=== PATIENT | male | born 1945 | race Caucasian/White ===

== ENCOUNTER 2024-08-31 16:52 | Inpatient (IN) | payer OTHER, SELFPAY ==
[2024-08-31] VITALS (13 sets, daily range): BP systolic 149–183; BP diastolic 83–108; PULSE 71–100; RESP 16–37; TEMP 36.8–37.1; O2SAT 87–100; BMI 25.4; BMI 23.1
--- NOTE | 2024-08-31 16:59 | EKG12_ITS ---
Test Reason : Blood Pressure : */* mmHG Vent. Rate : 82 BPM Atrial Rate : 82 BPM P-R Int : 174 ms QRS Dur : 88 ms QT Int : 388 ms P-R-T Axes : 72 -51 61 degrees QTcB Int : 453 ms Normal sinus rhythm Left axis deviation Pulmonary disease pattern Nonspecific T wave abnormality Abnormal ECG Confirmed by ZORAN PAIGE, MARCIE ([id number]), movie editor LUIS SALEH ([id number]) on 09/01/2024 1:34:03 PM Referred By: Paulie Rojas Confirmed By: MARCIE MEEHAN MD
--- NOTE | 2024-08-31 16:59 | EKG12_ITS ---
Test Reason : Blood Pressure : */* mmHG Vent. Rate : 82 BPM Atrial Rate : 82 BPM P-R Int : 174 ms QRS Dur : 88 ms QT Int : 388 ms P-R-T Axes : 72 -51 61 degrees QTcB Int : 453 ms Normal sinus rhythm Left axis deviation Pulmonary disease pattern Nonspecific T wave abnormality Abnormal ECG Confirmed by ZORAN PAIGE, MARCIE ([id number]), offline editor LUIS SALEH ([id number]) on 09/01/2024 1:34:03 PM Referred By: Paulie Rojas Confirmed By: MARCIE MEEHAN MD
[2024-08-31 17:20] LABS: Hematocrit 44.9 % (40-54); Hemoglobin 14.7 g/dL (13.0-16.5); Immature Granulocytes Count 0.240 X10^3/uL (0.0-0.0); Mean Corp Hgb Conc 32.7 g/dL (32-36); Mean Corpuscular Volume 92.0 fL (80-94); Mean Platelet Vol. 8.8 fl (6.2-12.0); NRBC Flagged by Analyzer 0 % (0-5); Platelet Count 219 K/mm3 (150-450); RBC Distribution Width CV 13.1 % (11.6-14.6); RBC Distribution Width SD 44.0 fl (35.1-43.9); Red Blood Count 4.88 M/mm3 (4.6-6.2); White Blood Count 6.3 K/mm3 (4.4-11.0)
--- NOTE | 2024-08-31 18:00 | RAD_ITS ---
EXAM: XR Chest, 1 View CLINICAL INDICATION: CHEST PAIN TECHNIQUE: Frontal view of the chest. COMPARISON: No relevant prior studies available. FINDINGS: LUNGS AND PLEURAL SPACES: Right basilar atelectasis or pneumonia. Right pleural effusion. HEART: Cardiomegaly with mild congestion. MEDIASTINUM: Unremarkable. Normal mediastinal contour. BONES/JOINTS: Unremarkable. No acute fracture. RAD/Chest 1 View (Portable) IMPRESSION: 1. Right basilar atelectasis or pneumonia. 2. Cardiomegaly with mild congestion. 3. Right pleural effusion. Reading Location: [id number]
--- NOTE | 2024-08-31 18:00 | RAD_ITS ---
EXAM: XR Chest, 1 View CLINICAL INDICATION: CHEST PAIN TECHNIQUE: Frontal view of the chest. COMPARISON: No relevant prior studies available. FINDINGS: LUNGS AND PLEURAL SPACES: Right basilar atelectasis or pneumonia. Right pleural effusion. HEART: Cardiomegaly with mild congestion. MEDIASTINUM: Unremarkable. Normal mediastinal contour. BONES/JOINTS: Unremarkable. No acute fracture. RAD/Chest 1 View (Portable) IMPRESSION: 1. Right basilar atelectasis or pneumonia. 2. Cardiomegaly with mild congestion. 3. Right pleural effusion. Reading Location: [id number]
--- NOTE | 2024-08-31 18:08 | EDS_ITS ---
HPI History of Present Illness Chief Complaint: Cough Informant: patient Onset/Context/Timing Onset: Today Context: Sudden Onset Timing: Continuous Quality: Pressure Location: Chest, upper back, bilateral arms Worsened by: Nothing Relieved by: Rest Narrative Narrative: Patient presents with cough, chest pain, and bilateral arm pain that began today. Patient states it began rather suddenly. Patient describes it as a pressure. Patient states that it is across his chest, upper back, and bilateral arms. Patient states it is constant. Patient states nothing makes it worse and nothing makes it better. Patient states he is feeling better on arrival to the emergency department. Patient admits to a mild cough. Patient denies any fevers or chills. Patient denies any nausea or vomiting. [facility] Medical History CVA (cerebral vascular accident) COPD (chronic obstructive pulmonary disease) HTN (hypertension) Home Medications ?Medication ?Instructions ?Recorded ?Last Taken ?Type amlodipine 10 mg tablet 10 mg PO DAILY 08/31/24 Unkn own History aspirin 81 mg tablet 81 mg PO DAILY 08/31/24 Unkn own History cholecalciferol (vitamin D3) 50 50 mcg PO DAILY Unknown History mcg (2,000 unit) capsule empagliflozin 25 mg tablet 25 mg PO DAILY 08/31/24 Unk nown History losartan 100 mg tablet 100 mg PO DAILY 08/31/24 Unk nown History metformin 500 mg tablet 500 mg PO DAILY 08/31/24 Unk nown History metoprolol tartrate PO DAILY 08/31/24 Unknown Hi story multivitamin 1 tab PO DAILY 08/31/24 Unkn own History simvastatin 40 mg tablet 40 mg PO QHS 08/31/24 Unknow n History Allergy/AdvReac Type Severity Reaction Status Date / Time No Known Allergies Allergy Verified 08/31/24 16:53 Surgical History S/P CABG x 4 Social History Smoking Status: Current every day smoker tobacco type: cigars ROS ROS ED Constitutional Constitutional ED: Denies chills or fever(s) Eyes Eyes: Denies blurry vision or change in vision ENT ENT ED: Denies rhinorrhea or sore throat Cardiovascular Cardiovascular: Reports chest pain; Denies palpitations Respiratory/Chest Respiratory/Chest: Reports cough; Denies dyspnea Gastrointestinal Gastrointestinal: Denies nausea or vomiting Genitourinary Genitourinary ED: Denies dysuria or hematuria Musculoskeletal Musculoskeletal: Reports back pain; Denies neck pain Integumentary Denies abscess or rash Neurologic Neurologic: Denies headache(s) or weakness Allergic/Immunologic Allergic/Immunologic ED: Denies mouth swelling or urticaria EXAM Physical Exam Const Vital Signs: 08/31/24 16:53 08/31/24 16:59 08/31/24 17:05 Temperature 98.4 F Temperature Source Temporal Pulse Rate 100 Respiratory Rate 16 Respiratory Effort Respiratory Depth Respiratory Pattern Blood Pressure 156/108 H Blood Pressure Mean 124 Pulse Ox 90 87 96 Oxygen Delivery Method Room Air Room Air Nasal Cannula Oxygen Flow Rate (L/min) 2 08/31/24 17:52 08/31/24 17:54 08/31/24 18:26 Temperature Temperature Source Pulse Rate 84 74 Respiratory Rate 25 H 18 Respiratory Effort Normal Non-Labored Respiratory Depth Normal Respiratory Pattern Normal Blood Pressure 181/91 H 157/87 H Blood Pressure Mean 121 110 Pulse Ox 100 98 Oxygen Delivery Method Nasal Cannula Nasal Cannula Nasal Cannula Oxygen Flow Rate (L/min) 2 2 2 08/31/24 19:06 08/31/24 20:00 08/31/24 21:00 Temperature Temperature Source Pulse Rate 88 77 71 Respiratory Rate 37 H 18 18 Respiratory Effort Respiratory Depth Respiratory Pattern Blood Pressure 183/98 H 157/89 H 152/97 H Blood Pressure Mean 126 111 115 Pulse Ox 91 94 94 Oxygen Delivery Method Room Air Room Air Room Air Oxygen Flow Rate (L/min) 08/31/24 22:00 08/31/24 22:00 Temperature 98.7 F Temperature Source Pulse Rate 74 74 Respiratory Rate 18 18 Respiratory Effort Respiratory Depth Respiratory Pattern Blood Pressure 152/83 H 152/83 H Blood Pressure Mean 106 106 Pulse Ox 96 96 Oxygen Delivery Method Room Air Oxygen Flow Rate (L/min) Positive well nourished and well developed Constitutional Narrative: BMI is 25.4. General Appearance ED: well developed and NAD Neck supple and no JVD Chest Wall palpation of chest normal Resp normal respiratory effort and clear to auscultation bilaterally Cardio regular rate and regular rhythm GI non-tender and non-distended Palpation: soft Back/Spine Thoracic Spine / Upper Back: Negative for thoracic spinal tenderness or paraspinal muscle tenderness Neuro oriented x3, CN's II-XII intact bilaterally and no sensory deficits noted Sensorium / Orientation: alert Motor Exam: strength 5/5 throughout Psych mental status grossly normal MDM MDM MDM Narrative Medical decision making narrative: Differential diagnosis includes cardiac dysrhythmia, cardiac ischemia, pneumonia, bronchitis, electrolyte abnormality, congestive heart failure, pleural effusion, pulmonary embolism, and gastroesophageal reflux disease. EKG will be obtained to assess for cardiac dysrhythmia and cardiac ischemia. Chest x-ray will be obtained to assess for pneumonia, bronchitis, history of heart failure, and pleural effusion. CBC will be obtained to assess for leukocytosis and anemia. Basic metabolic profile will be obtained to assess for electrolyte abnormality and renal function. High-sensitivity troponin will be obtained to assess for cardiac ischemia. 2-hour repeat high-sensitivity troponin will be obtained to assess for ongoing cardiac ischemia. D-dimer will be obtained to assess for pulmonary embolism. History & Record Review Additional record(s) reviewed:: No prior records Lab Data Attestation: I reviewed the patient's lab results. Lab results narrative: CBC was reviewed and was within normal limits. Basic metabolic profile was reviewed. Glucose was mildly elevated at 190. The remainder was within normal limits. Initial high-sensitivity troponin was reviewed and was normal at 18. D-dimer was reviewed and was elevated 2.0. 2-hour repeat high-sensitivity troponin was reviewed and was normal at 20. Labs: Laboratory Results - last 24 hr 08/31/24 08/31/24 08/31/24 17:05 18:48 19:22 WBC 6.3 RBC 4.88 Hgb 14.7 Hct 44.9 MCV 92.0 MCH 30.1 MCHC 32.7 RDW Std Deviation 44.0 H RDW Coeff of Monika 13.1 Plt Count 219 MPV 8.8 Immature Gran % (Auto) 3.800 H Neut % (Auto) 70.2 H Lymph % (Auto) 17.1 L Pima % (Auto) 8.1 Eos % (Auto) 0.5 Baso % (Auto) 0.3 Absolute Neuts (auto) 4.4 Absolute Lymphs (auto) 1.07 Nucleated RBC % 0 D-Dimer Quant (PE/DVT) 2.00 H* Sodium 137 Potassium 3.6 Chloride 94 L Carbon Dioxide 32.8 H Anion Gap 11 BUN 13 Creatinine 0.82 Estim Creat Clear Calc 77.80 Est GFR (MDRD) Non-Af 89 BUN/Creatinine Ratio 16.1 Glucose 190 H Calcium 9.3 Magnesium 1.9 Troponin T High Sens 18 Troponin T Hi Sens 2 Hr 20 NT pro BNP II 272 Radiography Chest X-Ray - ED: 1 View, Read by ED Physician, Read by Radiologist and Right Effusion Diagnostic Testing: Clinical Impression(s) from Imaging Studies Chest X-Ray 08/31/24 18:00 IMPRESSION: 1. Right basilar atelectasis or pneumonia. 2. Cardiomegaly with mild congestion. 3. Right pleural effusion. Reading Location: [facility] Chest CTA 08/31/24 19:21 IMPRESSION: 1. No pulmonary embolism to the proximal segmental level. 2. Moderate right and small left pleural effusions. There is peripheral enhancement, right more than left, as may be seen with empyema. 3. 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 4. Bibasilar consolidation, which may represent atelectasis, edema, and/or infection. 5. Reflux of contrast into the IVC, suggestive of elevated right heart pressures. 6. Solid nodule in the right upper lobe measuring 4 mm, consider CT chest in 12 months if patient is at high risk for malignancy per Fleischner society guidelines. Reading Location: [facility] Portable 1 view chest x-ray was obtained. On my independent interpretation, lung zaragoza showed a right pleural effusion. There is right basilar atelectasis. There is cardiomegaly. Bony thorax is normal. There is no acute process noted. Radiologist also interpreted the x-ray and agrees. Because of the elevated D-dimer, CTA of the chest was obtained. There is no pulmonary embolism. There are moderate right and small left pleural effusions. There is a solid nodule in the right upper lobe measuring 4 mm. This was i nterpreted by the radiologist as also independently reviewed by myself. EKG Initial EKG: Attestation: I personally reviewed and interpreted this EKG as follows: Interpretation: Sinus Rhythm (82) and Non-Specific ST Changes Comments: EKG was obtained. On my independent interpretation, it showed a normal sinus rhythm with a rate of 82. OR interval, QRS interval, and QTc intervals were all normal. There is left axis deviation at -51. There are nonspecific ST-T wave changes. Prior EKG tracings: not available for review Prior: No Prior Treatment and Re-Evaluation :: Patient was given aspirin here. Patient was advised of this findings. Patient was ambulated on room air. Patient's oxygen level dropped to 77% while ambulating. Because of this, recommended admission to the hospital for further evaluation of the pleural effusion. Case was discussed with the hospitalist. He recommended obtaining a BNP. This was ordered. He will admit the patient to his service. Patient understood and was agreeable with this plan. All questions were answered. Discharge Plan Dx/Rx/DC Orders Clinical Impression: Pleural effusion on right, Hypoxia, Elevated blood pressure reading Disposition Disposition: Acute Care Hospital [facility] Discharge Date/Time: 08/31/24 23:26
[2024-08-31 18:27] LABS: Anion Gap 11 (5-15); BUN 13 mg/dL (4-19); BUN/Creat Ratio 16.1 RATIO (10-20); Calcium,Total 9.3 mg/dL (7.6-11.0); Carbon Dioxide 32.8 mmol/L (21.0-32.0); Chloride 94 mmol/L (98-108); Estimated Creatinine Clearance 77.80 ml/min (50-250); Glucose 190 mg/dL (70-99); Potassium 3.6 mmol/L (3.3-5.1)
[2024-08-31 18:28] LABS: Troponin T High Sensitivity 18 ng/L (<=22)
[2024-08-31 19:19] LABS: D-Dimer Quantitative (DVT/PE) 2.00 FEU/ug/m (0.27-0.49)
--- NOTE | 2024-08-31 19:21 | CT_ITS ---
PROCEDURE: CTA CHEST W/WO CONTRAST 08/31/2024 REASON FOR EXAM: ELEVATED D-DIMER TECHNIQUE: CTA CHEST W/WO CONTRAST Multiplanar Sagittal and Coronal images were obtained. 3D post processing was performed CONTRAST: Isovue 370 VOLUME: 100 mL mL One or more dose reduction techniques were used (e.g., Automated exposure control, adjustment of the mA and/or kV according to patient size, use of iterative reconstruction technique). RADIATION DOSE SUMMARY: CTDlvol: 16.6 mGy DLP: 408 mGycm COMPARISON: Same day chest radiograph FINDINGS: Lymph nodes: No significant lymphadenopathy. Heart: Sequelae of CABG. Mild cardiomegaly. Enln-cx-cannymev coronary calcification bilaterally. Thoracic Aorta: No thoracic aortic aneurysm or dissection. Pulmonary Vessels: No evidence of acute pulmonary emboli through the proximal segmental branches. Lungs and Airways: Trace nonobstructing debris in the trachea. There is consolidation in the lower lobes, [id number]-left. There is a triangular perifissural nodule in the right upper lobe measuring 4 mm (series 2 image 142). Pleura: Moderate right and small left pleural effusions, with mild peripheral enhancement bilaterally, right more than left. Bilateral calcified pleural plaques. Upper Abdomen: Splenic calcifications suggestive of prior granulomatous disease. There is reflux of contrast into the IVC. Thickening of the adrenal glands without discrete nodularity. Bones: Degenerative changes of the thoracic spine. CT/CTA Chest W/WO Contrast IMPRESSION: 1. No pulmonary embolism to the proximal segmental level. 2. Moderate right and small left pleural effusions. There is peripheral enhan cement, right more than left, as may be seen with empyema. 3. 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 4. Bibasilar consolidation, which may represent atelectasis, edema, and/or inf ection. 5. Reflux of contrast into the IVC, suggestive of elevated right heart pressur es. 6. Solid nodule in the right upper lobe measuring 4 mm, consider CT chest in 1 2 months if patient is at high risk for malignancy per Fleischner society guidelines. Reading Location: [id number]
--- NOTE | 2024-08-31 19:21 | CT_ITS ---
PROCEDURE: CTA CHEST W/WO CONTRAST 08/31/2024 REASON FOR EXAM: ELEVATED D-DIMER TECHNIQUE: CTA CHEST W/WO CONTRAST Multiplanar Sagittal and Coronal images were obtained. 3D post processing was performed CONTRAST: Isovue 370 VOLUME: 100 mL mL One or more dose reduction techniques were used (e.g., Automated exposure control, adjustment of the mA and/or kV according to patient size, use of iterative reconstruction technique). RADIATION DOSE SUMMARY: CTDlvol: 16.6 mGy DLP: 408 mGycm COMPARISON: Same day chest radiograph FINDINGS: Lymph nodes: No significant lymphadenopathy. Heart: Sequelae of CABG. Mild cardiomegaly. Jpsk-[id number] coronary calcification bilaterally. Thoracic Aorta: No thoracic aortic aneurysm or dissection. Pulmonary Vessels: No evidence of acute pulmonary emboli through the proximal segmental branches. Lungs and Airways: Trace nonobstructing debris in the trachea. There is consolidation in the lower lobes, [id number]-[id number]-oayw-left. There is a triangular perifissural nodule in the right upper lobe measuring 4 mm (series 2 image 142). Pleura: Moderate right and small left pleural effusions, with mild peripheral enhancement bilaterally, right more than left. Bilateral calcified pleural plaques. Upper Abdomen: Splenic calcifications suggestive of prior granulomatous disease. There is reflux of contrast into the IVC. Thickening of the adrenal glands without discrete nodularity. Bones: Degenerative changes of the thoracic spine. CT/CTA Chest W/WO Contrast IMPRESSION: 1. No pulmonary embolism to the proximal segmental level. 2. Moderate right and small left pleural effusions. There is peripheral enhan cement, right more than left, as may be seen with empyema. 3. 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 4. Bibasilar consolidation, which may represent atelectasis, edema, and/or inf ection. 5. Reflux of contrast into the IVC, suggestive of elevated right heart pressur es. 6. Solid nodule in the right upper lobe measuring 4 mm, consider CT chest in 1 2 months if patient is at high risk for malignancy per Fleischner society guidelines. Reading Location: [id number]
[2024-08-31 20:05] LABS: Troponin T High Sens 2 HR 20 ng/L (<=22)
--- NOTE | 2024-08-31 21:35 | ED.RN ---
The patient denied all symptoms while ambulating. Patient was steady on his feet while ambulating and despite the low pulse ox reading, the patient's work of breathing was WNL.
--- NOTE | 2024-08-31 21:57 | PCM.HP.STD ---
[facility] - General General Date of Admission: 08/31/24 Date of Service: 08/31/24 Chief Complaint: SOB, Cough and Chest Pain. HPI Narrative BRANDI EPPERSON, is a 79 M with a past medical history of essential hypertension, chronic tobacco abuse, history of CVA and history of CAD; s/p CABG x 4 who presents to [facility] ER complaining of shortness of breath, cough and chest pain. Mr. Epperson reports his symptoms began earlier today with a nonproductive cough causing chest pain that radiated into both arms. He states it began suddenly with no recent illness. He describes the pain as pressure-like and radiating across his chest, upper back and bilateral arms. He states the pain is constant and nothing seems to make it better or worse. He admits to continued smoking but he denies associated fever, chills, changes in vision, runny nose, sore throat, ear pain, palpitations, heart racing, lower extremity edema, nausea, vomiting, diarrhea, constipation, dysuria, hematuria or rash. 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 He was then diagnosed with a moderate Right pleural effusion complicated by clinical evidence of Acute Respiratory Insufficiency with patient requiring 2L NC complicated by Chest Pain and he was then admitted to the PCU under observation status for ongoing care for stay that is expected to be less than 2 midnights. [facility] Medical History CVA (cerebral vascular accident) COPD (chronic obstructive pulmonary disease) HTN (hypertension) Allergy/AdvReac Type Severity Reaction Status Date / Time No Known Allergies Allergy Verified 08/31/24 16:53 Surgical History S/P CABG x 4 Social History Smoking Status: Current every day smoker tobacco type: cigars ROS ROS Narrative Review of Systems: Constitutional: Patient denies fever or chills. Eyes: Patient denies changes in vision or discharge from eyes. ENT: Patient denies runny nose, sore throat or ear pain. Resp: Patient admits to mild cough and dyspnea. CV: Patient admits to chest pain as per HPI. He denies palpitations, heart racing or lower extremity edema. GI: Patient denies abdominal pain, nausea, vomiting, diarrhea or constipation. : Patient denies dysuria or hematuria. MSK: Patient admits to back pain but he denies neck pain. Skin: Patient denies rash, abscess, wounds or jaundice. Psych: Patient denies symptoms of uncontrolled depression or anxiety. Neuro: Patient denies headache, paresthesias or focal neurologic deficits. Allergy: Patient denies lip swelling, tongue swelling or urticaria. Hematology: Patient denies easy bleeding or easy bruisability. Endocrinology: Patient denies polyuria, polydipsia, polyphagia or heat/cold intolerance. 14 point ROS otherwise negative save for positives noted above in HPI. Vital Signs Vital Signs Vital Signs: 08/31/24 16:53 08/31/24 16:59 08/31/24 17:05 Temperature 98.4 F Temperature Source Temporal Pulse Rate 100 Respiratory Rate 16 Respiratory Effort Respiratory Depth Respiratory Pattern Blood Pressure 156/108 H Blood Pressure Mean 124 Pulse Ox 90 87 96 Oxygen Delivery Method Room Air Room Air Nasal Cannula Oxygen Flow Rate (L/min) 2 08/31/24 17:52 08/31/24 17:54 08/31/24 18:26 Temperature Temperature Source Pulse Rate 84 74 Respiratory Rate 25 H 18 Respiratory Effort Normal Non-Labored Respiratory Depth Normal Respiratory Pattern Normal Blood Pressure 181/91 H 157/87 H Blood Pressure Mean 121 110 Pulse Ox 100 98 Oxygen Delivery Method Nasal Cannula Nasal Cannula Nasal Cannula Oxygen Flow Rate (L/min) 2 2 2 08/31/24 19:06 08/31/24 20:00 08/31/24 21:00 Temperature Temperature Source Pulse Rate 88 77 71 Respiratory Rate 37 H 18 18 Respiratory Effort Respiratory Depth Respiratory Pattern Blood Pressure 183/98 H 157/89 H 152/97 H Blood Pressure Mean 126 111 115 Pulse Ox 91 94 94 Oxygen Delivery Method Room Air Room Air Room Air Oxygen Flow Rate (L/min) Weight Weight: 182 lb Body Mass Index (BMI) 25.4 Physical Exam Const alert, oriented x3, no apparent distress and average body habitus General Appearance: cooperative HEENT normocephalic, head/scalp atraumatic, hearing grossly normal bilaterally and moist oral mucous membranes Eyes PERRL, EOMs intact bilaterally and conjunctivae normal Neck no lymphadenopathy, supple and no JVD Resp Resp Narrative: Diminished breath sounds over Right lower lobe. Cardio regular rate and regular rhythm GI normal to inspection, nondistended, normoactive bowel sounds, soft to palpation, non-tender and non-distended Extremity normal to inspection, full ROM and no clubbing, cyanosis or edema Skin Skin Narrative: Patient has evidence of rash, abscess, wounds or jaundice. Neuro oriented x3, CN's II-XII intact bilaterally, moves all extremities and no focal motor deficits Sensorium / Orientation: awake, alert, oriented to person, oriented to place and oriented to time Speech: speech normal Psych affect normal Results Medical Records Data Attestation: I reviewed the patient's medical records Lab / Micro Data Attestation: I reviewed the patient's lab results. 08/31/24 17:05 08/31/24 17:05 Labs: Laboratory Results - last 24 hr 08/31/24 17:05: WBC 6.3, RBC 4.88, Hgb 14.7, Hct 44.9, MCV 92.0, MCH 30.1, MCHC 32.7, RDW Std Deviation 44.0 H, RDW Coeff of Monika 13.1, Plt Count 219, MPV 8.8, Immature Gran % (Auto) 3.800 H, Neut % (Auto) 70.2 H, Lymph % (Auto) 17.1 L, Chambers % (Auto) 8.1, Eos % (Auto) 0.5, Baso % (Auto) 0.3, Absolute Neuts (auto) 4.4, Absolute Lymphs (auto) 1.07, Nucleated RBC % 0, Sodium 137, Potassium 3.6, Chloride 94 L, Carbon Dioxide 32.8 H, Anion Gap 11, BUN 13, Creatinine 0.82, Estim Creat Clear Calc 77.80, Est GFR (MDRD) Non-Af 89, BUN/Creatinine Ratio 16.1, Glucose 190 H, Calcium 9.3, Troponin T High Sens 18 08/31/24 18:48: D-Dimer Quant (PE/DVT) 2.00 H* 08/31/24 19:22: Troponin T Hi Sens 2 Hr 20 Imaging Radiology Impression Chest X-Ray 08/31/24 18:00 IMPRESSION: 1. Right basilar atelectasis or pneumonia. 2. Cardiomegaly with mild congestion. 3. Right pleural effusion. Reading Location: [id number] Chest CTA 08/31/24 19:21 IMPRESSION: 1. No pulmonary embolism to the proximal segmental level. 2. Moderate right and small left pleural effusions. There is peripheral enhancement, right more than left, as may be seen with empyema. 3. 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 4. Bibasilar consolidation, which may represent atelectasis, edema, and/or infection. 5. Reflux of contrast into the IVC, suggestive of elevated right heart pressures. 6. Solid nodule in the right upper lobe measuring 4 mm, consider CT chest in 12 months if patient is at high risk for malignancy per Fleischner society guidelines. Reading Location: [id number] Assessment & Plan Assessment/Plan (1) Pleural effusion on right: (2) Cough: QUALIFIERS: Cough type: acute Qualified Code(s): R05.1 - Acute cough (3) Chest pain: QUALIFIERS: Chest pain type: unspecified Qualified Code(s): R07.9 - Chest pain, unspecified (4) Respiratory insufficiency: (5) Tobacco abuse: (6) Essential hypertension: PLAN: Plan 1. Moderate Right pleural effusion noted on CT this admission with Cough and Chest Pain - Admit to PCU under observation status. Keep n.p.o. after midnight for diagnostic thoracentesis at interventional radiology in a.m. If Tessalon Perles 100 mg p.o. 3 times daily as needed. Doubt pneumonia with normal WBC and patient afebrile on admission. Give acetaminophen as needed for [id number] (level 1-5/10) pain or fever. Give morphine IV as needed for severe (level 6-10/10) pain. 2. Acute Respiratory Insufficiency with patient requiring 2L NC due to #1 - Wean supplemental oxygen as tolerated. 3. Chronic Tobacco Abuse with CT this admission showing ~4 mm RUL nodule complicating #1 & #2 - Tobacco Cessation will be strongly encouraged with nicotine patch offered to control cravings. Patient will need follow-up CT scan in approximately 12 months as per radiologist's recommendations. 4. Essential hypertension adding to the medical complexity of #1 - #3 - Give hydralazine IV prn for systolic blood pressure > 160 mmHg. 5. History of CAD; s/p CABG x 4 - Noted. Serialize troponin and check echocardiogram. 6. History of CVA - Noted. 7. DVT prophylaxis - SCD's only with impending thoracentesis. Total time: Approximately (but not less than) 70 minutes. Charges/Coding Visit Charges OBSV E&M: 49895 Observ/hosp same date L2
--- NOTE | 2024-08-31 22:22 | ECHOD_ITS ---
Reason For Study Reason For Study: CHEST PAIN Procedure This was a 2D Doppler, Color Flow transthoracic echocardiogram. Exam performed portable in patient room. Left Ventricle Normal left ventricle. The estimated ejection fraction is 60???65 %. Right Ventricle Normal right ventricle. Normal systolic function. Atria Normal left atrium. Normal right atrium. Mitral Valve The mitral valve is structurally normal. No prolapse or stenosis seen. Tricuspid Valve Normal tricuspid valve. Aortic Valve Trisinus/trileaflet aortic valve. Pulmonic Valve The pulmonic valve is not well visualized. Great Vessels The aortic root is not well visualized. Pericardium/Pleural No pericardial effusion. MMode/2D Measurements & Calculations LVIDd: 4.7 cm IVSd: 1.3 cm LVOT diam: 2.1 cm LVIDs: 2.6 cm LVPWd: 1.1 cm LVOT area: 3.4 cm2 RVDd: 3.2 cm FS: 44.8 % LAV(MOD-sp4): 22.9 ml LVAd ap4: 19.9 cm2 LVAd ap2: 16.6 cm2 LVLd ap4: 7.1 cm LVLd ap2: 6.8 cm EDV(MOD-sp4): 47.5 ml EDV(MOD-sp2): 32.6 ml EDV(sp4-el): 47.4 ml EDV(sp2-el): 34.4 ml LVAs ap4: 9.9 cm2 LVAs ap2: 9.3 cm2 LVLs ap4: 5.8 cm LVLs ap2: 5.9 cm ESV(MOD-sp4): 15.3 ml ESV(MOD-sp2): 13.2 ml ESV(sp4-el): 14.3 ml ESV(sp2-el): 12.4 ml EF(MOD-sp4): 67.9 % EF(MOD-sp2): 59.5 % EF(sp4-el): 69.9 % SV(MOD-sp4): 32.2 ml SV(MOD-sp2): 19.4 ml SV(sp4-el): 33.1 ml SI(MOD-sp4): 16.4 ml/m2 SI(MOD-sp2): 9.9 ml/m2 Ao sinus diam: 3.[address] Junction: 3.0 cm LA A4 area: 11.7 cm2 LA dimension(2D): 2.7 cm TAPSE: 1.5 cm RA A4 area: 9.6 cm2 Time Measurements MV dec time: 0.12 sec Doppler Measurements & Calculations MV E max anirudh: 39.5 cm/sec Lat Peak E' Anirudh: 7.5 cm/sec Med Peak E' Anirudh: 6.7 cm/sec MV A max anirudh: 88.1 cm/sec E/E' lat: 5.3 E/E' med: 5.9 MV E/A: 0.45 MV dec slope: 321.9 cm/sec2 Ao V2 max: 140.5 cm/sec LV V1 max: 104.2 cm/sec Ao max P.9 mmHg LV V1 max P.3 mmHg Ao V2 mean: 100.7 cm/sec LV V1 mean P.5 mmHg Ao mean P.6 mmHg LV V1 mean: 72.6 cm/sec Ao V2 VTI: 25.0 cm LV V1 VTI: 19.1 cm AV (velocity ratio): 0.76 MARTY(I,D): 2.6 cm2 MARTY(V,D): 2.5 cm2 SV(LVOT): 64.7 ml PA V2 max: 88.2 cm/sec TR max anirudh: 283.7 cm/sec TR max P.2 mmHg ECHO/Echo Complete Interpretation Summary The estimated ejection fraction is 60???65 %. Normal LV systolic function No significant valvular abnormality No previous echo to compare. Ordering Physician: Paulie Rojas Referring Physician: Paulie Rojas Performed By: Sally Smith RDCS and Student
[2024-08-31 22:44] LABS: Magnesium 1.9 mg/dL (1.5-2.2)
[2024-08-31 23:25] LABS: Pro- Brain NATRIURETIC PEPTIDE 272 pg/mL (<=1800)
[2024-09-01] VITALS (9 sets, daily range): BP systolic 118–155; BP diastolic 72–84; PULSE 75–93; RESP 16–18; TEMP 36.3–36.8; O2SAT 93–97; BMI 23.6
[2024-09-01] MEDS: 0.9% Saline Lock 10 ML Syringe IV (00:05)
[2024-09-01 00:11] LABS: Troponin T High Sens 4 HR 22 ng/L (<=22)
--- NOTE | 2024-09-01 01:17 | EKG12_ITS ---
Test Reason : CP ADMIT Blood Pressure : */* mmHG Vent. Rate : 70 BPM Atrial Rate : 70 BPM P-R Int : 194 ms QRS Dur : 88 ms QT Int : 424 ms P-R-T Axes : 75 -43 42 degrees QTcB Int : 457 ms Normal sinus rhythm Left axis deviation Nonspecific T wave abnormality Abnormal ECG When compared with ECG of 31-Aug-2024 17:12, MANUAL COMPARISON REQUIRED DATA IS UNCONFIRMED Confirmed by ZORAN PAIGE, MARCIE ([id number]), editorial clerk LUIS SALEH ([id number]) on 09/02/2024 8:10:14 AM Referred By: Paulie Rojas Confirmed By: MARCIE MEEHAN MD
--- NOTE | 2024-09-01 01:17 | EKG12_ITS ---
Test Reason : CP ADMIT Blood Pressure : */* mmHG Vent. Rate : 70 BPM Atrial Rate : 70 BPM P-R Int : 194 ms QRS Dur : 88 ms QT Int : 424 ms P-R-T Axes : 75 -43 42 degrees QTcB Int : 457 ms Normal sinus rhythm Left axis deviation Nonspecific T wave abnormality Abnormal ECG When compared with ECG of 31-Aug-2024 17:12, MANUAL COMPARISON REQUIRED DATA IS UNCONFIRMED Confirmed by ZORAN PAIGE, MARCIE ([id number]), electronic news gathering editor LUIS SALEH ([id number]) on 09/02/2024 8:10:14 AM Referred By: Paulie Rojas Confirmed By: MARCIE MEEHAN MD
--- NOTE | 2024-09-01 05:44 | VDLE_ITS ---
Reason For Study Reason For Study: Elevated D-dimer RIGHT LEFT GSV is normal. GSV is normal. CFV is compressible, spontaneous, phasic, competent CFV is compressible, spontaneous, phasic, competent, and demonstrates normal augmentation. and demonstrates normal augmentation. FV is compressible, spontaneous, phasic, competent FV is compressible, spontaneous, phasic, competent and demonstrates normal augmentation. and demonstrates normal augmentation. POP V is compressible, spontaneous, phasic, competent POP V is compressible, spontaneous, phasic, competent and demonstrates normal augmentation. and demonstrates normal augmentation. T/P Trunk is compressible. T/P Trunk is compressible. PTV is compressible. PTV is compressible. RT PerV is compressible. LT PerV is compressible. Procedure This is a venous duplex using B-mode, color flow and spectral Doppler. Exam performed portable in patient room. A preliminary report was called and/or faxed to [facility]. VL/Venous Duplex US - Jitendra Extrem Interpretation Summary Deep veins of the bilateral lower extremities are patent and compressible segme ntally. There is no evidence of bilateral lower extremity deep vein thrombosis. The bilateral great saphenous veins appea r patent and compressible segmentally. Ordering Physician: Paulie Rojas Referring Physician: [facility] Performed By: Gela Wilder RVT
--- NOTE | 2024-09-01 05:44 | VDLE_ITS ---
Reason For Study Reason For Study: Elevated D-dimer RIGHT LEFT GSV is normal. GSV is normal. CFV is compressible, spontaneous, phasic, competent CFV is compressible, spontaneous, phasic, competent, and demonstrates normal augmentation. and demonstrates normal augmentation. FV is compressible, spontaneous, phasic, competent FV is compressible, spontaneous, phasic, competent and demonstrates normal augmentation. and demonstrates normal augmentation. POP V is compressible, spontaneous, phasic, competent POP V is compressible, spontaneous, phasic, competent and demonstrates normal augmentation. and demonstrates normal augmentation. T/P Trunk is compressible. T/P Trunk is compressible. PTV is compressible. PTV is compressible. RT PerV is compressible. LT PerV is compressible. Procedure This is a venous duplex using B-mode, color flow and spectral Doppler. Exam performed portable in patient room. A preliminary report was called and/or faxed to [facility]. VL/Venous Duplex US - Jitendra Extrem Interpretation Summary Deep veins of the bilateral lower extremities are patent and compressible segme ntally. There is no evidence of bilateral lower extremity deep vein thrombosis. The bilateral great saphenous veins appea r patent and compressible segmentally. Ordering Physician: Paulie oRjas Referring Physician: [facility] Performed By: Gela Wilder RVT
[2024-09-01 06:21] LABS: Hematocrit 41.0 % (40-54); Hemoglobin 13.4 g/dL (13.0-16.5); Mean Corp Hgb Conc 32.7 g/dL (32-36); Mean Corpuscular Volume 92.1 fL (80-94); Mean Platelet Vol. 9.0 fl (6.2-12.0); POSITIVE COUNT YES; POSITIVE MORPHOLOGY YES; Platelet Count 202 K/mm3 (150-450); RBC Distribution Width CV 13.2 % (11.6-14.6); RBC Distribution Width SD 44.7 fl (35.1-43.9); Red Blood Count 4.45 M/mm3 (4.6-6.2); White Blood Count 5.1 K/mm3 (4.4-11.0)
[2024-09-01 06:24] LABS: Differential Indicated MANUAL DIFF
[2024-09-01 07:04] LABS: AST(SGOT) 20 U/L (<=37); Alanine Aminotransfer ALT/SGPT 8 U/L (<=46); Albumin, Serum 3.5 g/dL (3.4-4.8); Alkaline Phosphatase 91 U/L (40-129); Anion Gap 10 (5-15); BUN 15 mg/dL (4-19); BUN/Creat Ratio 20.1 RATIO (10-20); Calcium,Total 9.0 mg/dL (7.6-11.0); Carbon Dioxide 32.2 mmol/L (21.0-32.0); Chloride 96 mmol/L (98-108); Cholesterol 154 mg/dL (<=200); Estimated Creatinine Clearance 79.74 ml/min (50-250); Globulin 3.2 g/dL (2.2-4.2); Glucose 186 mg/dL (70-99); Low Density Lipoprotein Calc. 100 mg/dL; Potassium 3.6 mmol/L (3.3-5.1); Triglycerides 89 mg/dL; Very Low Density Lipoprotein 18 mg/dL (5-40); cholesterol:hdl ratio screen 4.25
[2024-09-01 07:38] LABS: Mucous, Urine 0 SEEN /hpf (<or=2+)
[2024-09-01 08:08] LABS: Total Cells Counted 100 (MANUAL DIFF)
[2024-09-01 08:24] LABS: Neutrophil-Segmented 60 % (47-70); Polychromasia 1+
[2024-09-01 08:28] LABS: Color, Urine Yellow (Yellow); Glucose, Dipstick 1000 mg/dl (Normal); Ketone-Dipstick Negative (Negative); Leukocyte Esterase-Dipstick Negative /ul (Negative); Nitrite-Dipstick Negative (Negative); Occult Blood-Urine 10 /ul (Negative); Protein-Dipstick 30 mg/dl (Negative); Specific Gravity, Urine 1.010 (1.002-1.030); Urine Bilirubin Dipstick Negative (Negative)
[2024-09-01 08:34] LABS: Squamous Epithelial Cells - UA 0-5 SEEN /hpf (0-5)
[2024-09-01 08:35] LABS: Red Blood Cells-Urine 0-5 SEEN /hpf (0-5)
[2024-09-01] MEDS: Cholecalciferol (VIT D3) 25 MCG TABLET (1,000 UNITS) 50 MCG PO (10:31)
--- NOTE | 2024-09-01 12:11 | PCM.PN.HOSP ---
Reason for Visit Reason for Visit: Diagnoses Essential (primary) hypertension (08/31/24) Pleural effusion, not elsewhere classified (08/31/24) Acute cough (08/31/24) Cough, unspecified (08/31/24) Other abnormalities of breathing (08/31/24) Chest pain, unspecified (08/31/24) Tobacco use (08/31/24) Subjective Subjective Patient is a 79-year-old gentleman with past medical history signal for coronary artery disease with previous CABG who presented with persistent cough with bilateral arm pain. Patient was found to have elevated D-dimer subsequent imaging studies did show no pulmonary embolism but moderate right and small left effusion. Admitted to monitored bed for subsequent eval Objective Data Objective Data Vital Signs: Vital Signs Temp Pulse Resp BP Pulse Ox O2 Del Method O2 Flow Rate 98 F 84 18 118/74 94 Nasal Cannula 2 09/01/24 09:55 09/01/24 09:55 09/01/24 09:55 09/01/24 09:55 09/01/24 09:55 09/01/24 09:55 09/01/24 09:55 Oxygen Flow Rate (L/min) 2 Oxygen Delivery Method Nasal Cannula Weight: 76.9 kg Body Mass Index (BMI) 23.6 Intake & Output: Intake and Output for Last 24 Hours 08/30/24 08/31/24 09/01/24 23:59 23:59 23:59 Intake Total 240 / 240 240 / 240 Output Total 0 / 0 0 / 0 Balance 240 / 240 240 / 240 Lab / Micro Data 09/01/24 05:24 09/01/24 05:24 Labs: Laboratory Results - last 24 hr 08/31/24 17:05: WBC 6.3, RBC 4.88, Hgb 14.7, Hct 44.9, MCV 92.0, MCH 30.1, MCHC 32.7, RDW Std Deviation 44.0 H, RDW Coeff of Monika 13.1, Plt Count 219, MPV 8.8, Immature Gran % (Auto) 3.800 H, Neut % (Auto) 70.2 H, Lymph % (Auto) 17.1 L, Sawyer % (Auto) 8.1, Eos % (Auto) 0.5, Baso % (Auto) 0.3, Absolute Neuts (auto) 4.4, Absolute Lymphs (auto) 1.07, Nucleated RBC % 0, Sodium 137, Potassium 3.6, Chloride 94 L, Carbon Dioxide 32.8 H, Anion Gap 11, BUN 13, Creatinine 0.82, Estim Creat Clear Calc 77.80, Est GFR (MDRD) Non-Af 89, BUN/Creatinine Ratio 16.1, Glucose 190 H, Calcium 9.3, Troponin T High Sens 18 08/31/24 18:48: D-Dimer Quant (PE/DVT) 2.00 H* 08/31/24 19:22: Magnesium 1.9, Troponin T Hi Sens 2 Hr 20, NT pro BNP II 272 08/31/24 23:15: Troponin T Hi Sens 4Hr 22 09/01/24 05:24: WBC 5.1, RBC 4.45 L, Hgb 13.4, Hct 41.0, MCV 92.1, MCH 30.1, MCHC 32.7, RDW Std Deviation 44.7 H, RDW Coeff of Monika 13.2, Plt Count 202, MPV 9.0, Neut % (Auto) Not Reportable, Absolute Neuts (auto) 3.1, Absolute Lymphs (auto) 1.48, Total Counted 100, Neutrophils % (Manual) 60, Lymphocytes % (Manual) 29, Monocytes % (Manual) 9, Metamyelocytes % 1, Myelocytes % 1 H, Diff Path Review July, Platelet Estimate A, Polychromasia 1+, Sodium 138, Potassium 3.6, Chloride 96 L, Carbon Dioxide 32.2 H, Anion Gap 10, BUN 15, Creatinine 0.75, Estim Creat Clear Calc 79.74, Est GFR (MDRD) Non-Af 92, BUN/Creatinine Ratio 20.1 H, Glucose 186 H, Calcium 9.0, Phosphorus 3.4, Total Bilirubin 0.67, AST 20, ALT 8, Alkaline Phosphatase 91, Total Protein 6.7, Albumin 3.5, Globulin 3.2, Albumin/Globulin Ratio 1.1, Triglycerides 89, Cholesterol 154, LDL Cholesterol, Calc 100, VLDL Cholesterol 18, HDL Cholesterol 36 L, Cholesterol/HDL Ratio 4.25, TSH 0.791 09/01/24 07:15: Urine Color Yellow, Urine Clarity Clear, Urine pH 6.5, Ur Specific Brinkley 1.010, Urine Protein 30 H, Urine Glucose (UA) 1000 H, Urine Ketones Negative, Urine Occult Blood 10 H, Urine Nitrite Negative, Urine Bilirubin Negative, Urine Urobilinogen 1 H, Ur Leukocyte Esterase Negative, Urine RBC 0-5 SEEN, Urine WBC 0 SEEN, Ur Squamous Epith Cells 0-5 SEEN, Urine Bacteria 0 SEEN, Urine Mucus 0 SEEN Radiography Diagnostic Testing: Radiology Impression Chest X-Ray 08/31/24 18:00 IMPRESSION: 1. Right basilar atelectasis or pneumonia. 2. Cardiomegaly with mild congestion. 3. Right pleural effusion. Reading Location: [id number] Chest CTA 08/31/24 19:21 IMPRESSION: 1. No pulmonary embolism to the proximal segmental level. 2. Moderate right and small left pleural effusions. There is peripheral enhancement, right more than left, as may be seen with empyema. 3. 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 4. Bibasilar consolidation, which may represent atelectasis, edema, and/or infection. 5. Reflux of contrast into the IVC, suggestive of elevated right heart pressures. 6. Solid nodule in the right upper lobe measuring 4 mm, consider CT chest in 12 months if patient is at high risk for malignancy per Fleischner society guidelines. Reading Location: [id number] Venous Doppler Study 09/01/24 05:44 Interpretation Summary Deep veins of the bilateral lower extremities are patent and compressible segmentally. There is no evidence of bilateral lower extremity deep vein thrombosis. The bilateral great saphenous veins appear patent and compressible segmentally. Ordering Physician: Paulie Rojas Referring Physician: [facility] Performed By: Gela Wilder RVT Physical Exam Narrative GENERAL: cooperative HEENT: Atraumatic; normocephalic EYES; Anicteric, Normal Conjunctiva NECK; supple, normal thyroid, RESPIRATORY: Diminished to auscultation CARDIOVASCULAR: Regular S1 S2, GI: soft, normoactive bowel sounds, : No Renal angle tenderness; EXTREMITIES: No edema, no clubbing, MUSCULOSKELETAL: no muscle wasting NEURO: Awake; no lateralizing signs. SKIN: No Rash PSYCH; Flat affect Assessment & Plan Assessment/Plan (1) Pleural effusion on right: (2) Cough: QUALIFIERS: Cough type: acute Qualified Code(s): R05.1 - Acute cough (3) Chest pain: QUALIFIERS: Chest pain type: unspecified Qualified Code(s): R07.9 - Chest pain, unspecified (4) Respiratory insufficiency: (5) Tobacco abuse: (6) Essential hypertension: PLAN: Plan Patient is a 79-year-old gentleman with past medical history signal for coronary artery disease with previous CABG who presented with persistent cough with bilateral arm pain. Patient was found to have elevated D-dimer subsequent imaging studies did show no pulmonary embolism but moderate right and small left effusion. Admitted to monitored bed for subsequent eval 1. Moderate right-sided pleural effusion ? Patient admitted to monitored bed and order was given for patient to undergo both therapeutic and diagnostic paracentesis. Requisition was given for patient to have fluid analysis 2. Bilateral arm pain ? Given patient history of coronary artery disease serial cardiac enzymes ordered. Plan is for patient to undergo nuclear stress test on 09/02/2024 3. Acute hypoxic respiratory sufficiency Secondary to #1 placed on supplemental oxygen titrated to keep saturation greater than 90 4. Coronary artery disease ? With previous CABG patient remains on guideline directed medical therapy 5. Diabetes mellitus type II -patient's oral hypoglycemics held. Placed on long acting insulin, Accu-Cheks a.c. and at bedtime and covered with sliding scale insulin 6. Dyslipidemia ?Patient is on statin therapy, continued at home dose 7. Hypertension ? Blood pressure controlled, home medications continued with dose adjustment as needed 8. DVT prophylaxis ? SC Lovenox Time spent in the patient's overall evaluation,decision-making process, review of diagnostic data, adjustment of management, discussion with other providers, nursing nursing and ancillary staff involved in patient's care documentation, 50 Minutes Charges/Coding Visit Charges Inpatient E&M: 40916 Disch Hosp >30min
--- NOTE | 2024-09-01 12:20 | US_ITS ---
PROCEDURE: THORACENTESIS W US 09/01/2024 REASON FOR EXAM: MODERATE RIGHT PLEURAL EFFUSION IN SMOKER. TECHNIQUE: THORACENTESIS W US, right COMPARISON: None. FINDINGS: Following informed consent, and using standard sterile technique, ultrasound- guided right diagnostic and therapeutic thoracentesis was performed. 2% lidocaine local anesthesia was followed by placement of a 5 Armenian catheter into the right pleural fluid collection via a posterior approach. Approximately 350 mL of viscous cloudy brown fluid was successfully removed, a portion sent to the laboratory for evaluation. No complication was encountered, and the patient left the department in good condition without significant complaint. US/Thoracentesis W US IMPRESSION: Successful right thoracentesis. Laboratory results pending. Reading Location: [place] [id number]
--- NOTE | 2024-09-01 12:20 | FLU_PTH ---
PATIENT: BRANDI SHERWOOD LOC: [facility] U#:[id number] AGE/SX: 79/M ROOM: [facility] RE09/01/[address]: Dr. Paulie Antoine MD : 1945 BED: 1 DIS: 09/05/2024 SPEC #: [id number] RECD: 09/01/24 13:29 STATUS: BASSAM REQ #: [id number] MARLENA: 09/01/24 12:[address]: Paulie Antoine DEPT: CYTOLOGY RECD BY: Carlos Daniel ENTERED: 09/01/24 14:22 SP TYPE: Fluid OTHR DR: Dr. Paulie Rojas, [facility] Tissues: A - Pleural fluid, NOS Procedures: Special Stain Group II Surgery Specimen Level IV Cytospin Fluid HEADER OPERATION: Ultrasound guided thoracentesis PRE-OP DIAGNOSIS: Pleural effusion TISSUE SUBMITTED: A- Thoracentesis fluid for cytology DIAGNOSIS CYTOLOGY Pleural effusion: Acellular debris only. CYTOLOGY STUDY Slides are reviewed. CYTOLOGY GROSS A. Received is 95 ml of light-brown cloudy fluid labeled with the patient's name and and designated per the requisition as Thoracentesis fluid. Submitted for cytology and cell block preparation. 09/01/2024 CPT: 63704
--- NOTE | 2024-09-01 12:20 | US_ITS ---
PROCEDURE: THORACENTESIS W US 09/01/2024 REASON FOR EXAM: MODERATE RIGHT PLEURAL EFFUSION IN SMOKER. TECHNIQUE: THORACENTESIS W US, right COMPARISON: None. FINDINGS: Following informed consent, and using standard sterile technique, ultrasound- guided right diagnostic and therapeutic thoracentesis was performed. 2% lidocaine local anesthesia was followed by placement of a 5 Tajik catheter into the right pleural fluid collection via a posterior approach. Approximately 350 mL of viscous cloudy brown fluid was successfully removed, a portion sent to the laboratory for evaluation. No complication was encountered, and the patient left the department in good condition without significant complaint. US/Thoracentesis W US IMPRESSION: Successful right thoracentesis. Laboratory results pending. Reading Location: [place] [address]
--- NOTE | 2024-09-01 12:20 | FLU_PTH ---
PATIENT: BRANDI SHERWOOD LOC: [facility] U#:[id number] AGE/SX: 79/M ROOM: [facility] RE09/01/[address]: Dr. Paulie Antoine MD : 1945 BED: 1 DIS: 09/05/2024 SPEC #: [id number] RECD: 09/01/24 13:29 STATUS: BASSAM REQ #: [id number] MARLENA: 09/01/24 12:[address]: Paulie Antoine DEPT: CYTOLOGY RECD BY: Carlos Daniel ENTERED: 09/01/24 14:22 SP TYPE: Fluid OTHR DR: Dr. Paulie Rojas, [facility] Tissues: A - Pleural fluid, NOS Procedures: Special Stain Group II Surgery Specimen Level IV Cytospin Fluid HEADER OPERATION: Ultrasound guided thoracentesis PRE-OP DIAGNOSIS: Pleural effusion TISSUE SUBMITTED: A- Thoracentesis fluid for cytology DIAGNOSIS CYTOLOGY Pleural effusion: Acellular debris only. CYTOLOGY STUDY Slides are reviewed. CYTOLOGY GROSS A. Received is 95 ml of light-brown cloudy fluid labeled with the patient's name and and designated per the requisition as Thoracentesis fluid. Submitted for cytology and cell block preparation. 09/01/2024 CPT: 09110
[2024-09-01] MEDS: Lidocaine 2% (20 ml mdv) 20 ML Vial INFILT (12:27)
[2024-09-01 13:12] LABS: LDH 196 U/L (87-241)
[2024-09-01 13:33] LABS: Pathologist Comment/Body Fluid May follow
[2024-09-01 15:07] LABS: Auto B Fluid Analyzer BKGD Ct COUNTS W/IN LIMITS (W/IN LIMITS)
[2024-09-01 15:08] LABS: Source- Body Fluid THORACENTESIS
[2024-09-01 15:13] LABS: Red Cell Count/Body Fluid 0.040 10^6/ul; White Blood Count/Body Fluid 56.840 10^3/uL
[2024-09-01 15:14] LABS: Body Fluid Mononuclear WBC % 89.2 %; Body Fluid Polynuclear WBC % 10.8 %
[2024-09-01 15:15] LABS: Body Fluid Mononuclear WBC # 2.535 10^3/uL; Body Fluid Polynuclear WBC # 0.307 10^3/uL
[2024-09-01 15:16] LABS: Body Fluid QC Type(s) 0701 BF1Q
[2024-09-01 16:40] LABS: Appearance/Body Fluid TURBID
[2024-09-01 16:41] LABS: Neutrophil (Segs) 98 %
[2024-09-01 16:47] LABS: Glucose, Body Fluid 31 mg/dL (Not Establ.)
[2024-09-02 04:00] VITALS: BP 127/75; PULSE 95; RESP 16; TEMP 37.2; O2SAT 93
--- NOTE | 2024-09-02 05:55 | EKG12_ITS ---
Test Reason : AM EKG Blood Pressure : */* mmHG Vent. Rate : 90 BPM Atrial Rate : 90 BPM P-R Int : 178 ms QRS Dur : 90 ms QT Int : 382 ms P-R-T Axes : 68 -51 69 degrees QTcB Int : 467 ms Sinus rhythm with Premature supraventricular complexes Left anterior fascicular block Septal infarct , age undetermined Abnormal ECG When compared with ECG of 01-Sep-2024 03:41, MANUAL COMPARISON REQUIRED DATA IS UNCONFIRMED Confirmed by ZORAN PAIGE, MARCIE ([id number]), multimedia editor LUIS SALEH ([id number]) on 09/02/2024 1:52:45 PM Referred By: Paulie Rojas Confirmed By: MARCIE MEEHAN MD
--- NOTE | 2024-09-02 05:55 | EKG12_ITS ---
Test Reason : AM EKG Blood Pressure : */* mmHG Vent. Rate : 90 BPM Atrial Rate : 90 BPM P-R Int : 178 ms QRS Dur : 90 ms QT Int : 382 ms P-R-T Axes : 68 -51 69 degrees QTcB Int : 467 ms Sinus rhythm with Premature supraventricular complexes Left anterior fascicular block Septal infarct , age undetermined Abnormal ECG When compared with ECG of 01-Sep-2024 03:41, MANUAL COMPARISON REQUIRED DATA IS UNCONFIRMED Confirmed by ZORAN PAIGE, MARCIE ([id number]), editor dictionary LUIS SALEH ([id number]) on 09/02/2024 1:52:45 PM Referred By: Paulie Rojas Confirmed By: MARCIE MEEHAN MD
[2024-09-02 06:00] VITALS: BMI 23.6
[2024-09-02 06:06] LABS: Hematocrit 39.4 % (40-54); Hemoglobin 13.0 g/dL (13.0-16.5); Mean Corp Hgb Conc 33.0 g/dL (32-36); Mean Corpuscular Volume 92.5 fL (80-94); Mean Platelet Vol. 8.7 fl (6.2-12.0); POSITIVE COUNT YES; POSITIVE MORPHOLOGY YES; Platelet Count 196 K/mm3 (150-450); RBC Distribution Width CV 13.2 % (11.6-14.6); RBC Distribution Width SD 44.4 fl (35.1-43.9); Red Blood Count 4.26 M/mm3 (4.6-6.2); White Blood Count 7.2 K/mm3 (4.4-11.0)
[2024-09-02 06:14] LABS: Anion Gap 9 (5-15); BUN 18 mg/dL (4-19); BUN/Creat Ratio 22.9 RATIO (10-20); Calcium,Total 9.0 mg/dL (7.6-11.0); Carbon Dioxide 31.6 mmol/L (21.0-32.0); Chloride 96 mmol/L (98-108); Estimated Creatinine Clearance 79.74 ml/min (50-250); Glucose 167 mg/dL (70-99); Magnesium 2.0 mg/dL (1.5-2.2); Potassium 3.7 mmol/L (3.3-5.1)
[2024-09-02 06:37] LABS: Differential Indicated MANUAL DIFF
[2024-09-02 07:22] VITALS: O2SAT 93
--- NOTE | 2024-09-02 07:31 | PCM.PN.HOSP ---
Reason for Visit Reason for Visit: Diagnoses Essential (primary) hypertension (09/01/24) Pleural effusion, not elsewhere classified (09/01/24) Acute cough (09/01/24) Cough, unspecified (09/01/24) Other abnormalities of breathing (09/01/24) Chest pain, unspecified (09/01/24) Tobacco use (09/01/24) Subjective Subjective Patient underwent ultrasound-guided thoracocentesis the day prior. Scheduled to undergo stress test this a.m. Objective Data Objective Data Vital Signs: Vital Signs Temp Pulse Resp BP Pulse Ox O2 Del Method O2 Flow Rate 99.0 F 95 16 127/75 H 93 Nasal Cannula 2 09/02/24 04:00 09/02/24 04:00 09/02/24 04:00 09/02/24 04:00 09/02/24 04:00 09/02/24 04:00 09/02/24 04:00 Oxygen Flow Rate (L/min) 2 Oxygen Delivery Method Nasal Cannula Weight: 76.7 kg Body Mass Index (BMI) 23.6 Intake & Output: Intake and Output for Last 24 Hours 08/31/24 09/01/24 09/02/24 23:59 23:59 23:59 Intake Total 240 / 240 480 / 480 Output Total 0 / 0 550 / 850 300 / 300 Balance 240 / 240 -70 / -370 -300 / -300 Lab / Micro Data 09/02/24 05:23 09/02/24 05:23 Labs: Laboratory Results - last 24 hr 08/31/24 : Fluid Glucose 31, Fluid Total Protein 4.0, Fluid LDH > 2500 09/01/24 05:24: Absolute Neuts (auto) 3.1, Absolute Lymphs (auto) 1.48, Total Counted 100, Neutrophils % (Manual) 60, Lymphocytes % (Manual) 29, Monocytes % (Manual) 9, Metamyelocytes % 1, Myelocytes % 1 H, Diff Path Review May , Platelet Estimate A, Polychromasia 1+, Lactate Dehydrogenase 196 09/01/24 07:15: Urine Color Yellow, Urine Clarity Clear, Urine pH 6.5, Ur Specific Haywood 1.010, Urine Protein 30 H, Urine Glucose (UA) 1000 H, Urine Ketones Negative, Urine Occult Blood 10 H, Urine Nitrite Negative, Urine Bilirubin Negative, Urine Urobilinogen 1 H, Ur Leukocyte Esterase Negative, Urine RBC 0-5 SEEN, Urine WBC 0 SEEN, Ur Squamous Epith Cells 0-5 SEEN, Urine Bacteria 0 SEEN, Urine Mucus 0 SEEN 09/01/24 : Fluid Source THORACENTESIS, Fluid Color , Fluid Appearance TURBID, Fluid WBC 56.840, Fluid RBC 0.040, Fluid Tot Cell Count 79.780, Fld Polynuclear WBCs # 0.307, Fld Polynuclear WBCs % 10.8, Fluid Mononuclear WBCs 2.535, Fld Mononuclear WBCs % 89.2, Fluid Neutrophils 98, Fluid Lymphocytes 2, Fl Pathologist Comment May follow, Fluid Comment 2 SEE COMMENT 09/02/24 05:23: WBC 7.2, RBC 4.26 L, Hgb 13.0, Hct 39.4 L, MCV 92.5, MCH 30.5, MCHC 33.0, RDW Std Deviation 44.4 H, RDW Coeff of Monika 13.2, Plt Count 196, MPV 8.7, Neut % (Auto) Not Reportable, Sodium 137, Potassium 3.7, Chloride 96 L, Carbon Dioxide 31.6, Anion Gap 9, BUN 18, Creatinine 0.80, Estim Creat Clear Calc 79.74, Est GFR (MDRD) Non-Af 90, BUN/Creatinine Ratio 22.9 H, Glucose 167 H, Calcium 9.0, Phosphorus 2.6 L, Magnesium 2.0 Radiography Diagnostic Testing: Radiology Impression Venous Doppler Study 09/01/24 05:44 Interpretation Summary Deep veins of the bilateral lower extremities are patent and compressible segmentally. There is no evidence of bilateral lower extremity deep vein thrombosis. The bilateral great saphenous veins appear patent and compressible segmentally. Ordering Physician: Paulie Rojas Referring Physician: [facility] Performed By: Gela Wilder RVT Thoracentesis Ultrasound 09/01/24 12:20 IMPRESSION: Successful right thoracentesis. Laboratory results pending. Reading Location: [place] [address] Physical Exam Narrative GENERAL: cooperative HEENT: Atraumatic; normocephalic EYES; Anicteric, Normal Conjunctiva NECK; supple, normal thyroid, RESPIRATORY: Diminished to auscultation CARDIOVASCULAR: Regular S1 S2, GI: soft, normoactive bowel sounds, : No Renal angle tenderness; EXTREMITIES: No edema, no clubbing, MUSCULOSKELETAL: no muscle wasting NEURO: Awake; no lateralizing signs. SKIN: No Rash PSYCH; Flat affect Assessment & Plan Assessment/Plan (1) Pleural effusion on right: (2) Cough: QUALIFIERS: Cough type: acute Qualified Code(s): R05.1 - Acute cough (3) Chest pain: QUALIFIERS: Chest pain type: unspecified Qualified Code(s): R07.9 - Chest pain, unspecified (4) Respiratory insufficiency: (5) Tobacco abuse: (6) Essential hypertension: PLAN: Plan Patient is a 79-year-old gentleman with past medical history signal for coronary artery disease with previous CABG who presented with persistent cough with bilateral arm pain. Patient was found to have elevated D-dimer subsequent imaging studies did show no pulmonary embolism but moderate right and small left effusion. Admitted to monitored bed for subsequent eval 1. Moderate right-sided pleural effusion ? Patient admitted to monitored bed and order was given for patient to undergo both therapeutic and diagnostic paracentesis. Requisition was given for patient to have fluid analysis ? 09/02/2024; patient underwent ultrasound-guided thoracocentesis the day prior Approximately 350 mL of viscous cloudy brown fluid was successfully removed, a portion sent to the laboratory for evaluation. No complication was encountered, and the patient left the department in good condition without significant complaint. Patient fluid analysis consistent with exudate. Did request for culture as well as cytology. With patient having a productive cough patient was started on Zosyn pending culture results 2. Bilateral arm pain ? Given patient history of coronary artery disease serial cardiac enzymes ordered. Plan is for patient to undergo nuclear stress test on 09/02/2024 09/02/2024; patient scheduled to undergo stress test 3. Acute hypoxic respiratory sufficiency Secondary to #1 placed on supplemental oxygen titrated to keep saturation greater than 90 4. Coronary artery disease ? With previous CABG patient remains on guideline directed medical therapy 5. Diabetes mellitus type II -patient's oral hypoglycemics held. Placed on long acting insulin, Accu-Cheks a.c. and at bedtime and covered with sliding scale insulin 6. Dyslipidemia ?Patient is on statin therapy, continued at home dose 7. Hypertension ? Blood pressure controlled, home medications continued with dose adjustment as needed 8. DVT prophylaxis ? SC Lovevickyx Charges/Coding Visit Charges Inpatient E&M: 43854 Subs Hosp L2
[2024-09-02 08:35] LABS: Neutrophil-Band 1 % (0-5); Neutrophil-Segmented 75 % (47-70); Total Cells Counted 100 (MANUAL DIFF)
[2024-09-02 08:36] LABS: Red Cell Morphology NORM C+C NORMAL (NORM C&C)
[2024-09-02 09:20] VITALS: BP 125/76; PULSE 82; RESP 18; TEMP 36.6; O2SAT 95
--- NOTE | 2024-09-02 11:43 | CASEMGMT ---
Dx: Moderate Right Pleural Effusion, Chest Pain LACE: 2 6-Clicks: 24 Medical record reviewed and patient evaluated for identification of discharge planning needs. Based on this review, at this time criteria are not present to indicate a need for discharge planning. Will remain available to assist with discharge planning needs as identified or requested.
[2024-09-02 13:52] VITALS: BP 125/72; PULSE 79; RESP 17; TEMP 37.1; O2SAT 94
[2024-09-02 17:00] VITALS: BP 107/69; PULSE 88; RESP 18; TEMP 36.3; O2SAT 94
[2024-09-02] MEDS: 0.9% Normal Saline (250mL Bag) 250 ML 15 ML IV (22:51)
[2024-09-02] MEDS: Piperacil/Tazobactam 3.375 GM in 0.9% Normal Saline (50mL MB+) 50 ML IV (22:51)
[2024-09-02 23:00] VITALS: BP 129/70; PULSE 74; RESP 14; TEMP 36.9; O2SAT 96
[2024-09-03] VITALS (10 sets, daily range): BP systolic 125–146; BP diastolic 62–77; PULSE 68–80; RESP 14–18; TEMP 36.6–37.1; O2SAT 92–98; BMI 23.0
[2024-09-03] MEDS: Piperacil/Tazobactam 3.375 GM in 0.9% Normal Saline (50mL MB+) 50 ML IV ×3 (05:14→21:35)
[2024-09-03 06:27] LABS: Hematocrit 38.5 % (40-54); Hemoglobin 12.6 g/dL (13.0-16.5); Mean Corp Hgb Conc 32.7 g/dL (32-36); Mean Corpuscular Volume 91.9 fL (80-94); Mean Platelet Vol. 8.7 fl (6.2-12.0); POSITIVE COUNT YES; POSITIVE MORPHOLOGY YES; Platelet Count 180 K/mm3 (150-450); RBC Distribution Width CV 13.2 % (11.6-14.6); RBC Distribution Width SD 44.8 fl (35.1-43.9); Red Blood Count 4.19 M/mm3 (4.6-6.2); White Blood Count 6.2 K/mm3 (4.4-11.0)
[2024-09-03 07:02] LABS: Anion Gap 7 (5-15); BUN 20 mg/dL (4-19); BUN/Creat Ratio 24.4 RATIO (10-20); Calcium,Total 9.0 mg/dL (7.6-11.0); Carbon Dioxide 34.0 mmol/L (21.0-32.0); Chloride 97 mmol/L (98-108); Estimated Creatinine Clearance 77.28 ml/min (50-250); Glucose 149 mg/dL (70-99); Potassium 3.8 mmol/L (3.3-5.1)
[2024-09-03 07:27] LABS: Neutrophil-Band 2 % (0-5); Neutrophil-Segmented 70 % (47-70); Red Cell Morphology NORM C+C NORMAL (NORM C&C)
[2024-09-03 07:29] LABS: Differential Indicated MANUAL DIFF; Scan Smear per Review Criteria MANUAL DIFF
[2024-09-03] MEDS: 0.9% Saline Lock 10 ML Syringe IV (09:11)
[2024-09-03] MEDS: Cholecalciferol (VIT D3) 25 MCG TABLET (1,000 UNITS) 50 MCG PO (09:12)
--- NOTE | 2024-09-03 16:42 | CASEMGMT ---
RN CM in to discuss needs at discharge. Patient currently on oxygen, discussed possible needs at discharge. Patient prefers [employer], denies further needs. Green sheet on chart.
[2024-09-04 03:34] VITALS: BMI 23.0
[2024-09-04 03:40] VITALS: BP 136/69; PULSE 77; RESP 16; TEMP 36.8; O2SAT 94; O2SAT 97
[2024-09-04 04:32] LABS: Hematocrit 37.4 % (40-54); Hemoglobin 12.2 g/dL (13.0-16.5); Mean Corp Hgb Conc 32.6 g/dL (32-36); Mean Corpuscular Volume 92.8 fL (80-94); Mean Platelet Vol. 8.9 fl (6.2-12.0); POSITIVE COUNT YES; POSITIVE MORPHOLOGY YES; Platelet Count 165 K/mm3 (150-450); RBC Distribution Width CV 13.1 % (11.6-14.6); RBC Distribution Width SD 44.4 fl (35.1-43.9); Red Blood Count 4.03 M/mm3 (4.6-6.2); White Blood Count 5.5 K/mm3 (4.4-11.0)
[2024-09-04 04:36] LABS: Differential Indicated MANUAL DIFF
[2024-09-04 04:53] LABS: Anion Gap 6 (5-15); BUN 16 mg/dL (4-19); BUN/Creat Ratio 21.2 RATIO (10-20); Calcium,Total 8.6 mg/dL (7.6-11.0); Carbon Dioxide 35.4 mmol/L (21.0-32.0); Chloride 98 mmol/L (98-108); Estimated Creatinine Clearance 79.32 ml/min (50-250); Glucose 140 mg/dL (70-99); Potassium 3.7 mmol/L (3.3-5.1)
[2024-09-04 05:22] LABS: Neutrophil-Band 1 % (0-5); Neutrophil-Segmented 68 % (47-70); Total Cells Counted 100 (MANUAL DIFF)
[2024-09-04 05:23] LABS: Red Cell Morphology NORM C+C NORMAL (NORM C&C)
[2024-09-04] MEDS: Piperacil/Tazobactam 3.375 GM in 0.9% Normal Saline (50mL MB+) 50 ML IV ×3 (05:52→20:21)
--- NOTE | 2024-09-04 07:56 | PN.HOSP_ITS ---
Reason for Visit Reason for Visit: Diagnoses Essential (primary) hypertension (09/01/24) Pleural effusion, not elsewhere classified (09/01/24) Acute cough (09/01/24) Cough, unspecified (09/01/24) Other abnormalities of breathing (09/01/24) Chest pain, unspecified (09/01/24) Tobacco use (09/01/24) Subjective Subjective Patient seen admitted significant improvement in overall condition. Gram stains did not demonstrate any organism. Patient body fluid cultures so far negative to date. Plan is for patient to be assessed for discharge Objective Data Objective Data Vital Signs: Vital Signs Temp Pulse Resp BP Pulse Ox O2 Del Method O2 Flow Rate 98.2 F 77 16 136/69 H 97 Room Air 2 09/04/24 03:40 09/04/24 03:40 09/04/24 03:40 09/04/24 03:40 09/04/24 03:40 09/04/24 03:40 09/04/24 03:40 Oxygen Flow Rate (L/min) 2 Oxygen Delivery Method Room Air Weight: 74.9 kg Body Mass Index (BMI) 23.0 Intake & Output: Intake and Output for Last 24 Hours 09/02/24 09/03/24 09/04/24 23:59 23:59 23:59 Intake Total 240 / 240 1200 / 1200 50 / 50 Output Total 700 / 700 350 / 850 950 / 950 Balance -460 / -460 850 / 350 -900 / -900 Lab / Micro Data 09/04/24 04:14 09/04/24 04:14 Labs: Laboratory Results - last 24 hr 09/04/24 04:14: WBC 5.5, RBC 4.03 L, Hgb 12.2 L, Hct 37.4 L, MCV 92.8, MCH 30.3, MCHC 32.6, RDW Std Deviation 44.4 H, RDW Coeff of Monika 13.1, Plt Count 165, MPV 8.9, Neut % (Auto) Not Reportable, Absolute Neuts (auto) 3.8, Absolute Lymphs (auto) 1.30, Total Counted 100, Neutrophils % (Manual) 68, Band Neutrophils % 1, Lymphocytes % (Manual) 23, Monocytes % (Manual) 5, Eosinophils % (Manual) 1, M etamyelocytes % 2 H, Platelet Estimate ADEQUATE, RBC Morphology NORM C+C, Sodium 140, Potassium 3.7, Chloride 98, Carbon Dioxide 35.4 H, Anion Gap 6, BUN 16, Creatinine 0.75, Estim Creat Clear Calc 79.32, Est GFR (MDRD) Non-Af 92, B UN/Creatinine Ratio 21.2 H, Glucose 140 H, Calcium 8.6 Micro: Microbiology 09/01/24 Unknown Fluid - Pleural (Lung) Gram Stain - Final 09/01/24 Unknown Fluid - Pleural (Lung) Body Fluid Culture - Preliminary No growth-Final to follow Physical Exam Narrative GENERAL: cooperative HEENT: Atraumatic; normocephalic EYES; Anicteric, Normal Conjunctiva NECK; supple, normal thyroid, RESPIRATORY: Diminished to auscultation CARDIOVASCULAR: Regular S1 S2, GI: soft, normoactive bowel sounds, : No Renal angle tenderness; EXTREMITIES: No edema, no clubbing, MUSCULOSKELETAL: no muscle wasting NEURO: Awake; no lateralizing signs. SKIN: No Rash PSYCH; Flat affect Assessment & Plan Assessment/Plan (1) Pleural effusion on right: (2) Cough: QUALIFIERS: Cough type: acute Qualified Code(s): R05.1 - Acute cough (3) Chest pain: QUALIFIERS: Chest pain type: unspecified Qualified Code(s): R07.9 - Chest pain, unspecified (4) Respiratory insufficiency: (5) Tobacco abuse: (6) Essential hypertension: PLAN: Plan Patient is a 79-year-old gentleman with past medical history signal for coronary artery disease with previous CABG who presented with persistent cough with bilateral arm pain. Patient was found to have elevated D-dimer subsequent imaging studies did show no pulmonary embolism but moderate right and small left effusion. Admitted to monitored bed for subsequent eval 1. Moderate right-sided pleural effusion ? Patient admitted to monitored bed and order was given for patient to undergo both therapeutic and diagnostic paracentesis. Requisition was given for patient to have fluid analysis ? 09/02/2024; patient underwent ultrasound-guided thoracocentesis the day prior Approximately 350 mL of viscous cloudy brown fluid was successfully removed, a portion sent to the laboratory for evaluation. No complication was encountered, and the patient left the department in good condition without significant complaint. Patient fluid analysis consistent with exudate. Did request for culture as well as cytology. With patient having a productive cough patient was started on Zosyn pending culture results ? 09/04/2024Patient seen admitted significant improvement in overall condition. Gram stains did not demonstrate any organism. Patient body fluid cultures so far negative to date. Plan is for patient to be assessed for discharge 2. Bilateral arm pain ? Given patient history of coronary artery disease serial cardiac enzymes ordered. Plan is for patient to undergo nuclear stress test on 09/02/2024 09/02/2024; patient scheduled to undergo stress test 3. Acute hypoxic respiratory sufficiency Secondary to #1 placed on supplemental oxygen titrated to keep saturation greater than 90 4. Coronary artery disease ? With previous CABG patient remains on guideline directed medical therapy 5. Diabetes mellitus type II -patient's oral hypoglycemics held. Placed on long acting insulin, Accu-Cheks a.c. and at bedtime and covered with sliding scale insulin 6. Dyslipidemia ?Patient is on statin therapy, continued at home dose 7. Hypertension ? Blood pressure controlled, home medications continued with dose adjustment as needed 8. DVT prophylaxis ? SC Lovenox
[2024-09-04 08:41] VITALS: PULSE 83
[2024-09-04] MEDS: Cholecalciferol (VIT D3) 25 MCG TABLET (1,000 UNITS) 50 MCG PO (08:41)
--- NOTE | 2024-09-04 09:35 | PCM.DC.SUM ---
Providers Date of Admission: 09/01/24 Date of Discharge: 09/04/24 Primary Care Physician: [facility] Reason For Visit: MODERATE RIGHT PLEURAL EFFUSION, COUGH, CHEST PAIN Diagnosis Discharge Diagnosis (1) Pleural effusion on right: Status: Acute Code(s): J90 - Pleural effusion, not elsewhere classified (2) Cough: Status: Acute Code(s): R05.9 - Cough, unspecified Qualifiers: Cough type: acute Qualified Code(s): R05.1 - Acute cough (3) Chest pain: Status: Acute Code(s): R07.9 - Chest pain, unspecified Qualifiers: Chest pain type: unspecified Qualified Code(s): R07.9 - Chest pain, unspecified (4) Respiratory insufficiency: Status: Acute Code(s): R06.89 - Other abnormalities of breathing (5) Tobacco abuse: Status: Acute Code(s): Z72.0 - Tobacco use (6) Essential hypertension: Status: Acute Code(s): I10 - Essential (primary) hypertension Plan Patient is a 79-year-old gentleman with past medical history signal for coronary artery disease with previous CABG who presented with persistent cough with bilateral arm pain. Patient was found to have elevated D-dimer subsequent imaging studies did show no pulmonary embolism but moderate right and small left effusion. Admitted to monitored bed for subsequent eval 1. Moderate right-sided pleural effusion ? Patient admitted to monitored bed and order was given for patient to undergo both therapeutic and diagnostic paracentesis. Requisition was given for patient to have fluid analysis ? 09/02/2024; patient underwent ultrasound-guided thoracocentesis the day prior Approximately 350 mL of viscous cloudy brown fluid was successfully removed, a portion sent to the laboratory for evaluation. No complication was encountered, and the patient left the department in good condition without significant complaint. Patient fluid analysis consistent with exudate. Did request for culture as well as cytology. With patient having a productive cough patient was started on Zosyn pending culture results ? 09/04/2024Patient seen admitted significant improvement in overall condition. Gram stains did not demonstrate any organism. Patient body fluid cultures so far negative to date. Plan is for patient to be assessed for discharge 2. Bilateral arm pain ? Given patient history of coronary artery disease serial cardiac enzymes ordered. Plan is for patient to undergo nuclear stress test on 09/02/2024 09/02/2024; patient scheduled to undergo stress test 3. Acute hypoxic respiratory sufficiency Secondary to #1 placed on supplemental oxygen titrated to keep saturation greater than 90 4. Coronary artery disease ? With previous CABG patient remains on guideline directed medical therapy 5. Diabetes mellitus type II -patient's oral hypoglycemics held. Placed on long acting insulin, Accu-Cheks a.c. and at bedtime and covered with sliding scale insulin 6. Dyslipidemia ?Patient is on statin therapy, continued at home dose 7. Hypertension ? Blood pressure controlled, home medications continued with dose adjustment as needed 8. DVT prophylaxis ? SC Lovenox Medications at Discharge Home Medications amlodipine 10 mg tablet 10 mg PO DAILY 08/31/24 aspirin 81 mg tablet 81 mg PO DAILY 08/31/24 cholecalciferol (vitamin D3) 50 mcg (2,000 unit) capsule 50 mcg PO DAILY 08/31/24 empagliflozin 25 mg tablet 25 mg PO DAILY 08/31/24 losartan 100 mg tablet 100 mg PO DAILY 08/31/24 metformin 500 mg tablet 500 mg PO BID diabetes 08/31/24 metoprolol tartrate 25 mg PO BID heart 08/31/24 multivitamin 1 tab PO DAILY 08/31/24 simvastatin 40 mg tablet 40 mg PO QHS 08/31/24 amoxicillin 875 mg-potassium clavulanate 125 mg tablet 1 tab PO BID #20 tabs 09/04/24 Hospital Course Summary of Care Provided Minutes Spent on Discharge: 35 Physical Exam Narrative GENERAL: cooperative HEENT: Atraumatic; normocephalic EYES; Anicteric, Normal Conjunctiva NECK; supple, normal thyroid, RESPIRATORY: Diminished to auscultation CARDIOVASCULAR: Regular S1 S2, GI: soft, normoactive bowel sounds, : No Renal angle tenderness; EXTREMITIES: No edema, no clubbing, MUSCULOSKELETAL: no muscle wasting NEURO: Awake; no lateralizing signs. SKIN: No Rash PSYCH; Flat affect Weight / BMI Weight Weight: 74.9 kg Body Mass Index (BMI) 23.0 ABG / Lab / Microbiology Data 09/04/24 04:14 09/04/24 04:14 Laboratory: Laboratory Results - last 24 hr 09/04/24 04:14: WBC 5.5, RBC 4.03 L, Hgb 12.2 L, Hct 37.4 L, MCV 92.8, MCH 30.3, MCHC 32.6, RDW Std Deviation 44.4 H, RDW Coeff of Monika 13.1, Plt Count 165, MPV 8.9, Neut % (Auto) Not Reportable, Absolute Neuts (auto) 3.8, Absolute Lymphs (auto) 1.30, Total Counted 100, Neutrophils % (Manual) 68, Band Neutrophils % 1, Lymphocytes % (Manual) 23, Monocytes % (Manual) 5, Eosinophils % (Manual) 1, Metamyelocytes % 2 H, Platelet Estimate ADEQUATE, RBC Morphology NORM C+C, Sodium 140, Potassium 3.7, Chloride 98, Carbon Dioxide 35.4 H, Anion Gap 6, BUN 16, Creatinine 0.75, Estim Creat Clear Calc 79.32, Est GFR (MDRD) Non-Af 92, BUN/Creatinine Ratio 21.2 H, Glucose 140 H, Calcium 8.6 Microbiology: Microbiology 09/01/24 Unknown Fluid - Pleural (Lung) Gram Stain - Final 09/01/24 Unknown Fluid - Pleural (Lung) Body Fluid Culture - Preliminary No growth-Final to follow D/C Instructions Discharge Diet: No restrictions Discharge Activity: Return to Normal Activity Call your doctor if you observe: Fever of 101 or Higher, Shortness of breath, Fainting spells and Chest pain DC O2, CPAP, BIPAP Needs Home O2 Discharge instructions: No Meaningful Use Info Meaningful Use Meaningful Use Diagnoses (Choose all that apply): None applicable Ischemic Stroke Statin Dosing Therapy Reference: STATIN DOSE THERAPY REFERENCE: * Patients > 75 years receive moderate or high dose statin therapy. * Patients 75 years or YOUNGER should receive HIGH intensity statin dose unless contraindicated. You will be required to document reason for non-treatment if statin daily dose does not meet guidelines. HIGH DOSE STATIN THERAPY DAILY Atorvastatin > than or = to 40 mg Rosuvastatin > than or = to 20 mg Amlodipine + Atorvastatin > than or = to 2.5/40 mg Ezetimibe + Simvastatin 10/80 mg Simvastatin 80mg Discharge Plan Admission Admit Date/Time: 09/01/24 15:36 Attending Provider: Paulie Antoine Primary Care Provider: [facility],[place] Consulting Providers: Paulie Rojas Discharge Orders/Prescriptions Prescriptions: New amoxicillin-pot clavulanate 875-125 mg tablet 1 tab PO BID Qty: 20 0RF Continued losartan 100 mg tablet 100 mg PO DAILY amlodipine 10 mg tablet 10 mg PO DAILY metformin 500 mg tablet 500 mg PO BID metoprolol tartrate 25 mg PO BID aspirin 81 mg tablet 81 mg PO DAILY simvastatin 40 mg tablet 40 mg PO QHS cholecalciferol (vitamin D3) 50 mcg (2,000 unit) capsule 50 mcg PO DAILY empagliflozin 25 mg tablet 25 mg PO DAILY multivitamin Tablet 1 tab PO DAILY Referrals / Follow Up: Raffy Dowell MD [Non-Staff] - [facility] 1 Week [facility] [Primary Care Provider] - Disposition Disposition (needs filled in before D/C Order can be placed): Home, Self Care Charges/Coding Visit Charges Inpatient E&M: 47464 Disch Hosp >30min
[2024-09-04 10:00] VITALS: BP 116/101; PULSE 66; RESP 18; TEMP 36.9; O2SAT 70; O2SAT 92
--- NOTE | 2024-09-04 11:50 | RAD_ITS ---
PROCEDURE: CHEST PA AND LATERAL, 09/04/2024 REASON FOR EXAM: HYPOXIA TECHNIQUE: PA and lateral views of the chest were obtained. COMPARISON: 08/31/2024 FINDINGS: Heart: Partially obscured, grossly unremarkable Mediastinum: Sternotomy. Atherosclerosis. Similar central vascular prominence. Lungs/pleura: Probably slightly improved now [id number] RIGHT pleural effusion. Grossly similar small LEFT pleural effusion allowing for the difference in modality. Redemonstrated better depicted previously adjacent airspace disease. No visible pneumothorax. Bones: Multilevel spondylosis. Suspect diffuse idiopathic skeletal hyperostosis Lines and support devices: None. Other: None. RAD/Chest PA and Lateral IMPRESSION: 1. Probably slightly decreased RIGHT pleural effusion allowing for the differen ce in modality. Grossly similar small LEFT pleural effusion. 2. Slightly improved aeration of the RIGHT lung base with persistent airspace d isease which may again reflect compressive atelectasis and/or pneumonia. 3. Additional description as above. Reading Location: [id number]
--- NOTE | 2024-09-04 11:50 | RAD_ITS ---
PROCEDURE: CHEST PA AND LATERAL, 09/04/2024 REASON FOR EXAM: HYPOXIA TECHNIQUE: PA and lateral views of the chest were obtained. COMPARISON: 08/31/2024 FINDINGS: Heart: Partially obscured, grossly unremarkable Mediastinum: Sternotomy. Atherosclerosis. Similar central vascular prominence. Lungs/pleura: Probably slightly improved now [id number] RIGHT pleural effusion. Grossly similar small LEFT pleural effusion allowing for the difference in modality. Redemonstrated better depicted previously adjacent airspace disease. No visible pneumothorax. Bones: Multilevel spondylosis. Suspect diffuse idiopathic skeletal hyperostosis Lines and support devices: None. Other: None. RAD/Chest PA and Lateral IMPRESSION: 1. Probably slightly decreased RIGHT pleural effusion allowing for the differen ce in modality. Grossly similar small LEFT pleural effusion. 2. Slightly improved aeration of the RIGHT lung base with persistent airspace d isease which may again reflect compressive atelectasis and/or pneumonia. 3. Additional description as above. Reading Location: [id number]
[2024-09-04] MEDS: 0.9% Saline Lock 10 ML Syringe IV ×3 (13:05→20:22)
[2024-09-04 17:00] VITALS: BP 115/64; PULSE 64; RESP 16; TEMP 36.8; O2SAT 95
[2024-09-04 21:30] VITALS: BP 151/72; PULSE 78; RESP 18; TEMP 36.6; O2SAT 94
[2024-09-05 03:30] VITALS: BP 114/73; PULSE 67; RESP 18; TEMP 36.1; O2SAT 98
[2024-09-05 03:56] VITALS: BMI 22.8
[2024-09-05] MEDS: Piperacil/Tazobactam 3.375 GM in 0.9% Normal Saline (50mL MB+) 50 ML IV (05:04)
[2024-09-05] MEDS: 0.9% Saline Lock 10 ML Syringe IV (05:05)
--- NOTE | 2024-09-05 07:49 | PCM.PN.HOSP ---
Reason for Visit Reason for Visit: Diagnoses Essential (primary) hypertension (09/01/24) Pleural effusion, not elsewhere classified (09/01/24) Acute cough (09/01/24) Cough, unspecified (09/01/24) Other abnormalities of breathing (09/01/24) Chest pain, unspecified (09/01/24) Tobacco use (09/01/24) Subjective Subjective Plan to discharge patient home the day prior was discontinued after patient became hypoxic prior to being discharged. Objective Data Objective Data Vital Signs: Vital Signs Temp Pulse Resp BP Pulse Ox O2 Del Method O2 Flow Rate 97.0 F L 67 18 114/73 98 Nasal Cannula 2 09/05/24 03:30 09/05/24 03:30 09/05/24 03:30 09/05/24 03:30 09/05/24 03:30 09/05/24 03:30 09/05/24 03:30 Oxygen Flow Rate (L/min) 2 Oxygen Delivery Method Nasal Cannula Weight: 74.4 kg Body Mass Index (BMI) 22.8 Intake & Output: Intake and Output for Last 24 Hours 09/03/24 09/04/24 09/05/24 23:59 23:59 23:59 Intake Total 1200 / 1200 930 / 930 50 / 50 Output Total 350 / 850 2800 / 3075 900 / 900 Balance 850 / 350 -1870 / -2145 -850 / -850 Lab / Micro Data 09/05/24 08:34 09/04/24 04:14 Micro: Microbiology 09/01/24 Unknown Fluid - Pleural (Lung) Gram Stain - Final 09/01/24 Unknown Fluid - Pleural (Lung) Body Fluid Culture - Preliminary No growth-Final to follow 09/01/24 Unknown Fluid - Pleural (Lung) Anaerobic Culture - Preliminary Checking for anaerobes, further studies to follow. Radiography Diagnostic Testing: Radiology Impression Chest X-Ray 09/04/24 11:50 IMPRESSION: 1. Probably slightly decreased RIGHT pleural effusion allowing for the difference in modality. Grossly similar small LEFT pleural effusion. 2. Slightly improved aeration of the RIGHT lung base with persistent airspace disease which may again reflect compressive atelectasis and/or pneumonia. 3. Additional description as above. Reading Location: [id number] Physical Exam Narrative GENERAL: cooperative HEENT: Atraumatic; normocephalic EYES; Anicteric, Normal Conjunctiva NECK; supple, normal thyroid, RESPIRATORY: Diminished to auscultation CARDIOVASCULAR: Regular S1 S2, GI: soft, normoactive bowel sounds, : No Renal angle tenderness; EXTREMITIES: No edema, no clubbing, MUSCULOSKELETAL: no muscle wasting NEURO: Awake; no lateralizing signs. SKIN: No Rash PSYCH; Flat affect Assessment & Plan Assessment/Plan (1) Pleural effusion on right: (2) Cough: QUALIFIERS: Cough type: acute Qualified Code(s): R05.1 - Acute cough (3) Chest pain: QUALIFIERS: Chest pain type: unspecified Qualified Code(s): R07.9 - Chest pain, unspecified (4) Respiratory insufficiency: (5) Tobacco abuse: (6) Essential hypertension: PLAN: Plan Patient is a 79-year-old gentleman with past medical history signal for coronary artery disease with previous CABG who presented with persistent cough with bilateral arm pain. Patient was found to have elevated D-dimer subsequent imaging studies did show no pulmonary embolism but moderate right and small left effusion. Admitted to monitored bed for subsequent eval 1. Moderate right-sided pleural effusion ? Patient admitted to monitored bed and order was given for patient to undergo both therapeutic and diagnostic paracentesis. Requisition was given for patient to have fluid analysis ? 09/02/2024; patient underwent ultrasound-guided thoracocentesis the day prior Approximately 350 mL of viscous cloudy brown fluid was successfully removed, a portion sent to the laboratory for evaluation. No complication was encountered, and the patient left the department in good condition without significant complaint. Patient fluid analysis consistent with exudate. Did request for culture as well as cytology. With patient having a productive cough patient was started on Zosyn pending culture results ? 09/04/2024Patient seen admitted significant improvement in overall condition. Gram stains did not demonstrate any organism. Patient body fluid cultures so far negative to date. Plan is for patient to be assessed for discharge 2. Bilateral arm pain ? Given patient history of coronary artery disease serial cardiac enzymes ordered. Plan is for patient to undergo nuclear stress test on 09/02/2024 09/02/2024; patient scheduled to undergo stress test 3. Acute hypoxic respiratory sufficiency Secondary to #1 placed on supplemental oxygen titrated to keep saturation greater than 90 ? 09/05/2024; decision to discharge patient home the day prior was discontinued after patient became hypoxic. Checks x-ray x-ray obtained did show probably slightly decreased RIGHT pleural effusion allowing for the difference in modality. Grossly similar small LEFT pleural effusion. Slightly improved aeration of the RIGHT lung base with persistent airspace disease which may again reflect compressive atelectasis and/or pneumonia.. Added Lasix to patient's therapy. ? I have reviewed the oxygen testing, and this patient qualifies for the home equipment and portability. The patient is mobile in the home and the community. 4. Acute congestive heart failure with preserved ejection fraction ? 2D echo obtained demonstrated EF of 60 to 65%. Lasix added to patient therapy on discharge 5. Coronary artery disease ? With previous CABG patient remains on guideline directed medical therapy 6. Diabetes mellitus type II -patient's oral hypoglycemics held. Placed on long acting insulin, Accu-Cheks a.c. and at bedtime and covered with sliding scale insulin 7. Dyslipidemia ?Patient is on statin therapy, continued at home dose 8. Hypertension ? Blood pressure controlled, home medications continued with dose adjustment as needed 9. DVT prophylaxis ? SC Lovenox
[2024-09-05 08:10] VITALS: BP 132/76; PULSE 67; RESP 16; TEMP 36.8; O2SAT 97
[2024-09-05] MEDS: Cholecalciferol (VIT D3) 25 MCG TABLET (1,000 UNITS) 50 MCG PO (08:10)
[2024-09-05 08:15] VITALS: O2SAT 97
[2024-09-05 08:41] LABS: Hematocrit 39.6 % (40-54); Hemoglobin 12.8 g/dL (13.0-16.5); Mean Corp Hgb Conc 32.3 g/dL (32-36); Mean Corpuscular Volume 92.1 fL (80-94); Mean Platelet Vol. 9.0 fl (6.2-12.0); POSITIVE COUNT YES; POSITIVE MORPHOLOGY YES; Platelet Count 179 K/mm3 (150-450); RBC Distribution Width CV 13.1 % (11.6-14.6); RBC Distribution Width SD 44.1 fl (35.1-43.9); Red Blood Count 4.30 M/mm3 (4.6-6.2); White Blood Count 5.8 K/mm3 (4.4-11.0)
[2024-09-05 08:43] LABS: Differential Indicated MANUAL DIFF
[2024-09-05 08:48] VITALS: O2SAT 75; O2SAT 91
[2024-09-05 09:15] LABS: Neutrophil-Band 3 % (0-5); Neutrophil-Segmented 79 % (47-70); Total Cells Counted 100 (MANUAL DIFF)
[2024-09-05 09:16] LABS: Red Cell Morphology NORM C+C NORMAL (NORM C&C)
--- NOTE | 2024-09-05 09:57 | PCM.DC.SUM ---
Providers Date of Admission: 09/01/24 Date of Discharge: 09/05/24 Primary Care Physician: [facility] Reason For Visit: MODERATE RIGHT PLEURAL EFFUSION, COUGH, CHEST PAIN Diagnosis Discharge Diagnosis (1) Pleural effusion on right: Status: Acute Code(s): J90 - Pleural effusion, not elsewhere classified (2) Cough: Status: Acute Code(s): R05.9 - Cough, unspecified Qualifiers: Cough type: acute Qualified Code(s): R05.1 - Acute cough (3) Chest pain: Status: Acute Code(s): R07.9 - Chest pain, unspecified Qualifiers: Chest pain type: unspecified Qualified Code(s): R07.9 - Chest pain, unspecified (4) Respiratory insufficiency: Status: Acute Code(s): R06.89 - Other abnormalities of breathing (5) Tobacco abuse: Status: Acute Code(s): Z72.0 - Tobacco use (6) Essential hypertension: Status: Acute Code(s): I10 - Essential (primary) hypertension Plan Patient is a 79-year-old gentleman with past medical history signal for coronary artery disease with previous CABG who presented with persistent cough with bilateral arm pain. Patient was found to have elevated D-dimer subsequent imaging studies did show no pulmonary embolism but moderate right and small left effusion. Admitted to monitored bed for subsequent eval 1. Moderate right-sided pleural effusion ? Patient admitted to monitored bed and order was given for patient to undergo both therapeutic and diagnostic paracentesis. Requisition was given for patient to have fluid analysis ? 09/02/2024; patient underwent ultrasound-guided thoracocentesis the day prior Approximately 350 mL of viscous cloudy brown fluid was successfully removed, a portion sent to the laboratory for evaluation. No complication was encountered, and the patient left the department in good condition without significant complaint. Patient fluid analysis consistent with exudate. Did request for culture as well as cytology. With patient having a productive cough patient was started on Zosyn pending culture results ? 09/04/2024Patient seen admitted significant improvement in overall condition. Gram stains did not demonstrate any organism. Patient body fluid cultures so far negative to date. Plan is for patient to be assessed for discharge 2. Bilateral arm pain ? Given patient history of coronary artery disease serial cardiac enzymes ordered. Plan is for patient to undergo nuclear stress test on 09/02/2024 09/02/2024; patient scheduled to undergo stress test 3. Acute hypoxic respiratory sufficiency Secondary to #1 placed on supplemental oxygen titrated to keep saturation greater than 90 ? 09/05/2024; decision to discharge patient home the day prior was discontinued after patient became hypoxic. Checks x-ray x-ray obtained did show probably slightly decreased RIGHT pleural effusion allowing for the difference in modality. Grossly similar small LEFT pleural effusion. Slightly improved aeration of the RIGHT lung base with persistent airspace disease which may again reflect compressive atelectasis and/or pneumonia.. Added Lasix to patient's therapy. ? I have reviewed the oxygen testing, and this patient qualifies for the home equipment and portability. The patient is mobile in the home and the community. 4. Acute congestive heart failure with preserved ejection fraction ? 2D echo obtained demonstrated EF of 60 to 65%. Lasix added to patient therapy on discharge 5. Coronary artery disease ? With previous CABG patient remains on guideline directed medical therapy 6. Diabetes mellitus type II -patient's oral hypoglycemics held. Placed on long acting insulin, Accu-Cheks a.c. and at bedtime and covered with sliding scale insulin 7. Dyslipidemia ?Patient is on statin therapy, continued at home dose 8. Hypertension ? Blood pressure controlled, home medications continued with dose adjustment as needed 9. DVT prophylaxis ? SC Lovenox Medications at Discharge Home Medications amlodipine 10 mg tablet 10 mg PO DAILY blood pressure 08/31/24 aspirin 81 mg tablet 81 mg PO DAILY heart health 08/31/24 cholecalciferol (vitamin D3) 50 mcg (2,000 unit) capsule 50 mcg PO DAILY vitamin 08/31/24 empagliflozin 25 mg tablet 25 mg PO DAILY diabetes 08/31/24 losartan 100 mg tablet 100 mg PO DAILY blood pressure 08/31/24 metformin 500 mg tablet 500 mg PO BID diabetes 08/31/24 metoprolol tartrate 25 mg PO BID heart 08/31/24 multivitamin 1 tab PO DAILY vitamin 08/31/24 simvastatin 40 mg tablet 40 mg PO QHS cholesterol 08/31/24 amoxicillin 875 mg-potassium clavulanate 125 mg tablet 1 tab PO BID #20 tabs 09/04/24 furosemide 40 mg tablet (Lasix) 40 mg PO DAILY #60 tabs 09/05/24 Hospital Course Summary of Care Provided Minutes Spent on Discharge: 35 Physical Exam Narrative GENERAL: cooperative HEENT: Atraumatic; normocephalic EYES; Anicteric, Normal Conjunctiva NECK; supple, normal thyroid, RESPIRATORY: Diminished to auscultation CARDIOVASCULAR: Regular S1 S2, GI: soft, normoactive bowel sounds, : No Renal angle tenderness; EXTREMITIES: No edema, no clubbing, MUSCULOSKELETAL: no muscle wasting NEURO: Awake; no lateralizing signs. SKIN: No Rash PSYCH; Flat affect Weight / BMI Weight Weight: 74.4 kg Body Mass Index (BMI) 22.8 ABG / Lab / Microbiology Data 09/05/24 08:34 09/04/24 04:14 Laboratory: Laboratory Results - last 24 hr 09/05/24 08:34: WBC 5.8, RBC 4.30 L, Hgb 12.8 L, Hct 39.6 L, MCV 92.1, MCH 29.8, MCHC 32.3, RDW Std Deviation 44.1 H, RDW Coeff of Monika 13.1, Plt Count 179, MPV 9.0, Neut % (Auto) Not Reportable, Absolute Neuts (auto) 4.7, Absolute Lymphs (auto) 0.80 L, Total Counted 100, Neutrophils % (Manual) 79 H, Band Neutrophils % 3, Lymphocytes % (Manual) 14 L, Monocytes % (Manual) 1, Metamyelocytes % 3 H, Platelet Estimate ADEQUATE, RBC Morphology NORM C+C Microbiology: Microbiology 09/01/24 Unknown Fluid - Pleural (Lung) Gram Stain - Final 09/01/24 Unknown Fluid - Pleural (Lung) Body Fluid Culture - Preliminary No growth-Final to follow 09/01/24 Unknown Fluid - Pleural (Lung) Anaerobic Culture - Preliminary Checking for anaerobes, further studies to follow. Radiography Diagnostic Testing: Radiology Impression Chest X-Ray 09/04/24 11:50 IMPRESSION: 1. Probably slightly decreased RIGHT pleural effusion allowing for the difference in modality. Grossly similar small LEFT pleural effusion. 2. Slightly improved aeration of the RIGHT lung base with persistent airspace disease which may again reflect compressive atelectasis and/or pneumonia. 3. Additional description as above. Reading Location: [facility] D/C Instructions Discharge Diet: No restrictions Call your doctor if you observe: Fever of 101 or Higher, Shortness of breath, Fainting spells and Chest pain DC O2, CPAP, BIPAP Needs Home O2 Discharge instructions: No Meaningful Use Info Meaningful Use Meaningful Use Diagnoses (Choose all that apply): CHF CHF ROMINA/ARB ordered at discharge?: Yes Documented LVEF (%): 60 Ischemic Stroke Statin Dosing Therapy Reference: STATIN DOSE THERAPY REFERENCE: * Patients > 75 years receive moderate or high dose statin therapy. * Patients 75 years or YOUNGER should receive HIGH intensity statin dose unless contraindicated. You will be required to document reason for non-treatment if statin daily dose does not meet guidelines. HIGH DOSE STATIN THERAPY DAILY Atorvastatin > than or = to 40 mg Rosuvastatin > than or = to 20 mg Amlodipine + Atorvastatin > than or = to 2.5/40 mg Ezetimibe + Simvastatin 10/80 mg Simvastatin 80mg Discharge Plan Admission Admit Date/Time: 09/01/24 15:36 Attending Provider: Paulie Antoine Primary [facility] Provider: [facility] Providers: Paulie Rojas Discharge Orders/Prescriptions Prescriptions: New amoxicillin-pot clavulanate 875-125 mg tablet 1 tab PO BID Qty: 20 0RF furosemide [Lasix] 40 mg tablet 40 mg PO DAILY Qty: 60 0RF Continued losartan 100 mg tablet 100 mg PO DAILY amlodipine 10 mg tablet 10 mg PO DAILY metformin 500 mg tablet 500 mg PO BID metoprolol tartrate 25 mg PO BID aspirin 81 mg tablet 81 mg PO DAILY simvastatin 40 mg tablet 40 mg PO QHS cholecalciferol (vitamin D3) 50 mcg (2,000 unit) capsule 50 mcg PO DAILY empagliflozin 25 mg tablet 25 mg PO DAILY multivitamin Tablet 1 tab PO DAILY Referrals / Follow Up: Raffy Dowell MD [Non-Staff] - Within 1 Week [facility] [Primary Care Provider[facility] - Disposition Disposition (needs filled in before D/C Order can be placed): Home, Self Care Charges/Coding Visit Charges Inpatient E&M: 07690 Disch Hosp >30min
[2024-09-05 09:59] LABS: Anion Gap 9 (5-15); BUN 16 mg/dL (4-19); BUN/Creat Ratio 19.8 RATIO (10-20); Calcium,Total 8.3 mg/dL (7.6-11.0); Carbon Dioxide 37.4 mmol/L (21.0-32.0); Chloride 94 mmol/L (98-108); Estimated Creatinine Clearance 77.82 ml/min (50-250); Glucose 152 mg/dL (70-99); Magnesium 1.8 mg/dL (1.5-2.2); Potassium 3.5 mmol/L (3.3-5.1)
[2024-09-05 10:19] VITALS: O2SAT 75; O2SAT 84; O2SAT 86; O2SAT 89; O2SAT 98
--- NOTE | 2024-09-05 10:41 | NURSING ---
[place] phoned and faxed information regarding home oxygen set up.
--- NOTE | 2024-09-05 10:41 | NURSING ---
[place] phoned and faxed information regarding home oxygen set up.
[2024-09-05 12:18] VITALS: BP 123/65; PULSE 65; RESP 18; TEMP 36.1; O2SAT 98
== END 2024-09-05 14:43 | disposition home or self-care (01) | DRG 188 ==
LOC: ED 22:46 → PCU 22:54
PROVIDERS: Admitting Provider Internal Medicine; Emergency Provider Emergency Medicine; Referring Provider Internal Medicine; Visit Provider Internal Medicine
DX: J90 Pleural effusion, not elsewhere classified (principal); E11.9 Type 2 diabetes mellitus without complications; J44.9 Chronic obstructive pulmonary disease, unspecified; I10 Essential (primary) hypertension; E78.5 Hyperlipidemia, unspecified; I25.10 Atherosclerotic heart disease of native coronary artery without angina pectoris; F17.290 Nicotine dependence, other tobacco product, uncomplicated; Z86.73 Personal history of transient ischemic attack (TIA), and cerebral infarction without residual deficits; Z79.82 Long term (current) use of aspirin; Z79.899 Other long term (current) drug therapy; Z79.84 Long term (current) use of oral hypoglycemic drugs; Z95.1 Presence of aortocoronary bypass graft; R06.89 Other abnormalities of breathing
CPT/HCPCS: 32555; 36415; 71045; 71046; 71275; 80048; 80053; 80061; 81001; 82945; 83615; 83735; 83880; 84100; 84157; 84443; 84484; 85025; 85379; 87070; 87075; 87205; 88108; 88305; 88313; 89050; 93005; 93306; 93970; 94668; 97802; 99285; 99406; Q9967; A4216; J1938